=== PATIENT | female | born 1940 | race Caucasian/White ===

== ENCOUNTER → 2016-07-21 | Outpatient (CLI) | payer MEDICARE, BC ==
--- NOTE | 2016-07-21 11:37 | CT ---
EXAMINATION TYPE: CT lumbar spine wo con DATE OF EXAM: 07/21/2016 11:25 AM COMPARISON: NONE HISTORY: back pain, hx of cyst CT DLP: 1326.6 mGycm CONTRAST: None TECHNIQUE: CT of the lumbar spine is performed on a spiral scan at 3 mm thick sections. Reconstructed images are performed in the coronal and sagittal planes. FINDINGS: T10-T11: No focal disc herniation or significant disc bulge is evident. No spinal canal stenosis or neural foraminal stenosis is present. T11-T12: No focal disc herniation or significant disc bulge is evident. No spinal canal stenosis or neural foraminal stenosis is present. T12-L1: No focal disc herniation or significant disc bulge is evident. No spinal canal stenosis or neural foraminal stenosis is present. L1-L2: Minimal disc bulging is anterior thecal sac contact. No AP spinal canal stenosis is present. N eural foramen are patent. L2-L3: Minimal disc bulging is anterior thecal sac compression. No AP spinal canal stenosis or neural foraminal stenosis is present. Some facet hypertrophy is present L3-L4: Minimal disc bulging is anterior thecal sac contact. Mild facet hypertrophy is present. No spi nal canal stenosis or neural foraminal stenosis is present. L4-L5: Very minimal grade 1 spondylolisthesis may be present. Disc uncovering is anterior thecal sac flattening. No AP spinal canal stenosis present. Facet degenerative changes are present. L5-S1: Degenerative disc changes are present. There is a disc spacer placed. Pedicle screws have beam hardening artifact causing some limitation on this exam. Vertebral alignment appears normal. IMPRESSION: Mild degenerative changes greatest at L5-S1. 2. Postsurgical changes L5-S1
== END | disposition home or self-care (01) ==
LOC: RADCTMAIN 11:05
PROVIDERS: ATTEND Neurological Surgery
DX: M47.817 Spondylosis without myelopathy or radiculopathy, lumbosacral region (principal); Z98.1 Arthrodesis status
CPT/HCPCS: 72131

== ENCOUNTER → 2016-10-12 | Outpatient (CLI) | payer MEDICARE, BC ==
--- NOTE | 2016-10-12 12:48 | MR ---
EXAMINATION TYPE: MR cervical spine wo con DATE OF EXAM: 10/12/2016 11:16 AM COMPARISON: NONE HISTORY: pseudarthrosis after fusion or arthrodesis, abbott, numbness in fingers TECHNIQUE: Multiplanar, multisequence images of the cervical spine were acquired. There is motion on the exam C2-C3: No evidence for degenerative disc disease. No disc bulge/herniation or protrusion. No Canal stenosis. Foramina are patent bilaterally. C3-C4: Uncovertebral joint hypertrophy and facet arthropathy results in foraminal encroachment left g reater than right, posterior extension of endplate disc complex causes anterior mass effect on the th ecal sac, no significant central canal stenosis C4-C5: Bilateral foraminal encroachment is noted left greater than right. Posterior extension of endp late disc complex causes mild anterior mass effect on the thecal sac. Only mild central stenosis. C5-C6: Posterior extension of endplate disc complex results in anterior mass effect on the thecal sac , there is mild to moderate central canal stenosis. Foraminal encroachment is suspected bilaterally l eft greater than right. C6-C7: Foraminal encroachment is present bilaterally. No sizable disc herniation. Broad-based posteri or disc bulge causes minimal anterior mass effect on the thecal sac C7-T1: Broad-based posterior disc bulge causes mild anterior mass effect on the thecal sac. No signif icant central stenosis or foraminal encroachment Cervical segments are intact. Cervical spinal cord is of normal signal. Craniovertebral junction rel ationships are within normal limits. Cervical vertebral bodies show preserved height. There is multi level spondylosis with loss of disc height and signal at the intervertebral levels, endplate discogen ic marrow signal change. Alignment is near anatomic. IMPRESSION: Multilevel degenerative disc disease and foraminal encroachment.
== END | disposition home or self-care (01) ==
LOC: RADMRIMAIN 10:22
PROVIDERS: ATTEND Neurological Surgery
DX: M50.30 Other cervical disc degeneration, unspecified cervical region (principal)
CPT/HCPCS: 72141

== ENCOUNTER → 2017-06-27 | Outpatient (CLI) | payer MEDICARE, BC ==
--- NOTE | 2017-06-27 11:41 | CT ---
EXAMINATION TYPE: CT lumbar spine wo con DATE OF EXAM: 06/27/2017 11:09 AM COMPARISON: 07/21/2016 HISTORY: Low back pain radiates down left leg to foot CT DLP: 1561.6 mGycm Automated exposure control for dose reduction was used. TECHNIQUE: Unenhanced CT of the lumbar spine was performed. Bone and soft tissue window settings are submitted as well as coronal and sagittal reconstructions. FINDINGS: There is minimal (grade 1) anterolisthesis of L4 on L5, unchanged from the prior exam without pars in terarticularis defects. This was likely on a degenerative basis. The remainder of the lumbar vertebra l bodies maintain normal alignment. Vertebral body heights are maintained. Multilevel mild to moderat e degenerative changes of the thoracolumbar spine as visualized are seen. Postsurgical changes of ped icular screws and fixation rods are seen at L5-S1 with an intervertebral disc cage present. Left-sided 2 mm upper pole renal calculus and arterial vascular linear calcifications are noted. No h ydronephrosis of either kidney. Severe atherosclerosis of the abdominal aorta and its branches is see n. L1-L2: Mild disc desiccation and slight loss of disc space height. No disc herniation protrusion or central stenosis. No facet joint arthropathy. No evidence for foraminal encroachment. L2-L3: There is a small broad-based disc bulge, facet arthropathy and ligamentum flavum buckling with out spinal canal stenosis or neural foraminal narrowing. L3-L4: There is a large broad-based disc bulge seen and examination with facet arthropathy and ligame ntum flavum buckling mildly narrow the neural foramen. No spinal canal stenosis. This is mildly progr essed in the prior exam. L4-L5: Again there is a broad-based disc bulge and disc uncovering with grade 1 anterolisthesis of L4 and L5. No spinal canal stenosis. Bilateral mild to moderate neural foraminal narrowing are present as a result of the broad-based disc bulge and facet arthropathy. This is progressed from the prior. L5-S1: Evaluation of the neural foramina are slightly limited secondary to spray artifact from the senia mbar fusion rods and pedicular screws however there appears to be mild left neural foraminal narrowin g and right neural foramen as well as spinal canal appear patent. Disc spacer is again seen. IMPRESSION: 1. Mildly progressed mild to moderate degenerative disc disease throughout the lumbar spine with new mild bilateral neural foraminal narrowing at L3-L4, bilateral mild to moderate neural foraminal narro wing at L4-L5, and while left neural foraminal narrowing at L5-S1. No spinal canal stenosis throughou t the lumbar spine. 2. Postsurgical changes of L5-S1 with persistent mild grade 1 anterolisthesis of L4 on L5, unchanged from the prior. 3. Nonobstructing left punctate renal calculus.
== END | disposition home or self-care (01) ==
LOC: RADCTMAIN 10:47
PROVIDERS: ATTEND Neurological Surgery
DX: M99.73 Connective tissue and disc stenosis of intervertebral foramina of lumbar region (principal); M43.16 Spondylolisthesis, lumbar region; M51.36 Other intervertebral disc degeneration, lumbar region; Z98.890 Other specified postprocedural states
CPT/HCPCS: 72131

== ENCOUNTER 2024-12-09 05:48 | Day surgery (SDC) | payer MEDICARE, BC ==
[~2024-12-09 05:48] MED LIST: ALPRAZolam 0.25 MG TAB PO PRN; ALPRAZolam 0.5 MG TAB PO PRN; HEPARIN SODIUM,PORCINE (1 ML) 2,500 UNIT in SODIUM CHLORIDE 0.9% 250 ML IRRIGATION PRN; NITROGLYCERIN SL TABS 0.4 MG TAB SUBLINGUAL PRN
[2024-12-09] MEDS: IV FLUID CONTINUATION 1,000 ML IV ONE ×2 (06:30→07:27)
[2024-12-09 06:40] LABS: Glucose,Whole Blood 137 mg/dL (70-110)
[2024-12-09] MEDS: SODIUM CHLORIDE 0.9% 1,000 ML in EMPTY BAG 1 BAG IV SCH (06:45)
[2024-12-09 06:58] LABS: Basophils # (A) 0.08 10*3/uL (0.00-0.10); Basophils % (A) 0.6 %; Eosinophils # (A) 0.15 10*3/uL (0.04-0.35); Eosinophils % (A) 1.2 %; HCT 25.2 % (37.2-46.3); HGB 8.1 g/dL (12.0-15.0); Lymphocytes # (A) 1.32 10*3/uL (0.90-5.00); Lymphocytes % (A) 10.3 %; MCH 27.6 pg (27.0-32.0); MCHC 32.1 g/dL (32.0-37.0); MCV 85.7 fL (80.0-97.0); Mean Platelet Volume 9.4 fL (9.5-12.2); Monocytes % (A) 7.8 %; Neutrophils # (A) 10.13 10*3/uL (1.80-7.70); Neutrophils % (A) 78.9 %; Platelet Count 497 10*3/uL (140-440); RBC 2.94 10*6/uL (4.10-5.20); RDW 13.7 % (11.5-14.5); WBC 12.83 10*3/uL (4.50-10.00)
[2024-12-09] MEDS ORDERED: HEPARIN SODIUM,PORCINE 10,000 UNIT in SODIUM CHLORIDE 0.9% 1,000 ML IRRIGATION PRN (07:00)
[2024-12-09] MEDS ORDERED: ATORVASTATIN 80 MG TAB PO ONE (07:00)
[2024-12-09 07:05] LABS: African American GFR (CKD) 88 (>60 ml/min/1.73 sqM); Anion Gap 6 mmol/L; Blood Urea Nitrogen 9 mg/dL (7-17); Calcium 8.6 mg/dL (8.4-10.2); Carbon Dioxide 28 mmol/L (22-30); Chloride 94 mmol/L (98-107); Glucose 119 mg/dL (74-99); Non-African American GFR(CKD) 76 (>60 ml/min/1.73 sqM); Potassium 3.6 mmol/L (3.5-5.1); Sodium 128 mmol/L (137-145)
[2024-12-09] MEDS: HEPARIN SODIUM,PORCINE (1 ML) 2,500 UNIT in SODIUM CHLORIDE 0.9% 250 ML IRRIGATION ONE (07:27)
[2024-12-09] MEDS: HEPARIN SODIUM (1,000 UNIT/ML) 1,000 UNIT in SODIUM CHLORIDE 0.9% 1,000 ML IRRIGATION ONE (07:27)
[2024-12-09] MEDS: LIDOCAINE 2% (PF) 20 MG/ML 5 ML VIAL SQ ONE (07:46)
[2024-12-09] MEDS: fentaNYL (PF) 50 MCG/1 ML VIAL IVP ONE ×2 (07:46→08:04)
[2024-12-09 08:02] VITALS: TEMP 98.2
[2024-12-09] MEDS: MIDAZOLAM 2 MG/2 ML VIAL IVP ONE (08:04)
[2024-12-09 08:10] VITALS: PULSE 70
[2024-12-09] MEDS: HEPARIN SODIUM 1,000 UN/ML (10ML VL) IVP ONE ×2 (08:21→08:29)
[2024-12-09 08:26] LABS: O2 Sat Blood Gas 51.5 %
[2024-12-09 08:28] LABS: O2 Sat Blood Gas 97.9 %
[2024-12-09 08:31] LABS: O2 Sat Blood Gas 55.6 %
[2024-12-09] MEDS: IOPAMIDOL-370 200ML BTL INTRATHECA ONE (08:49)
[2024-12-09] MEDS: ASPIRIN 325 MG TAB PO ONE (09:44)
--- NOTE | 2024-12-09 09:59 | P.CARDCATH ---
Description of Procedure: PROCEDURES PERFORMED: Left heart catheterization, bilateral coronary angiography, ultrasound guided arterial access, right heart catheterization, RFR LAD INDICATION: Abnormal stress test, pulmonary hypertension CONSENT:I have discussed the risks, benefits and alternative therapies for the above-mentioned procedure and for both sedation/analgesia as well as necessary blood product administration, if indicated, as they pertain to this patient. The patient has indicated understanding and acceptance of the risks and procedures discussed. PROCEDURE: After the risks, benefits and alternatives of the above mentioned procedure explained in detail with the patient, informed consent was obtained. Patient was taken to the catheterization lab and prepped and draped in usual fashion. Ultrasound guidance was used to assess for arterial access. 1% lidocaine was used to anesthetize the right radial artery. The right radial artery appeared small and ultrasound and 2 attempts were made with cannulation of the radial artery however unable to easily pass a wire. Therefore femoral approach was taken. 1% lidocaine was used in this the right femoral area. A 6- Tanzanian sheath was placed in the right femoral artery using modified Seldinger technique and ultrasound guidance with a micropuncture. A 6 [place] sheath was placed in the right brachial vein using ultrasound guidance. A 5 [place] Hooven- Inder catheter was inserted into the right atrium, right ventricle, pulmonary artery and pulmonary capillary wedge position with pressure measurements and oxygen saturations obtained. Thermodilution was performed. Left coronary angiography was performed with a 6-T[place] JL 4.0 catheter and right coronary angiography was performed with a 5-Tanz[place] AR2 catheter in various views. A 5- [place] FR5 catheter was inserted into the left ventricle and pressure measurements were obtained. There was borderline lesion in the LAD and therefore heparin was given and a 6 [place] CLS 4.0 catheter was used to engage the left main. A 0.014 pressure wire was inserted into the left main and normalized. It was then inserted into the mid LAD and RFR was performed and was borderline, abnormal at 0.89. Given patient's problems with anemia as well as significant hypertension, medical therapy was recommended first. A right femoral angiogram performed showed adequate anatomy for closure. A 6 [place] Angio-Seal was placed in the right femoral artery with hemostasis achieved. There was significant major difference between central aortic pressure and the 220-240/80 range and her automatic blood pressure cover reading of 70s over 40s. The patient tolerated the procedure well. Patient was transported back to the post catheterization holding area in stable condition. Conscious Sedation: Patient was monitored under the direct supervision of myself for conscious sedation using Versed and fentanyl for a total duration of 55 minutes HEMODYNAMICS: Aorta: 210/65 LV: 199/15, LVEDP 20 PCWP: 11 PA: 37/14 RV: 40/2 RA: 8 Right atrium oxygen saturation: 56% Pulmonary artery oxygen saturation: 52% Right femoral artery oxygen saturation: 90% Cardiac output by Danni: 5.0 L/min Cardiac index by Danni: 2.9 L/min/m Cardiac output by thermal dilution: 4.7 L/min Cardiac index by thermodilution: 2.7 L/min/m SELECTIVE CORONARY ARTERIOGRAPHY: LEFT MAIN: The left main is a large caliber vessel which bifurcates into the LAD and circumflex. There is no significant stenosis. LEFT ANTERIOR DESCENDING CORONARY ARTERY: LAD is a large caliber vessel which wraps around to the apex. There is heavy calcification however 20 to 30% proximal LAD stenosis. There is a mid LAD 60 to 70% stenosis at the level of a small caliber diagonal 2 branch. Otherwise there are mild luminal irregularities. LEFT CIRCUMFLEX CORONARY ARTERY: Left circumflex is a moderate caliber vessel with 20 to 30% stenosis. RIGHT CORONARY ARTERY: The right coronary artery is a large caliber vessel which gives off a PDA and PLV branch and is the dominant vessel. There are diffuse mild luminal irregularities with 20% proximal and mid RCA stenosis and a mid to distal RCA 50 to 60% stenosis. FINAL IMPRESSION: 1. CAD as described above including mid LAD 60 to 70% stenosis, mid to distal RCA 50 to 60% stenosis 2. High normal left sided filling pressures, normal right sided pressures 3. Major Discrepancy of systemic blood pressure reading and blood pressure cuff reading 4. Abnormal RFR of LAD PLAN: 1. Aggressive risk factor modification per most recent ACC/AHA guidelines. 2. Patient does have borderline abnormal RFR of LAD however significant anemia as well as significant hypertension. More aggressive medical therapy and if continues to have angina type symptoms may consider intervention.
[2024-12-09 13:08] VITALS: BP 86/46; RESP 16
== END 2024-12-09 13:30 | disposition home or self-care (01) ==
LOC: CATHCVL 05:48
PROVIDERS: ATTEND Internal Medicine
DX: I25.10 Atherosclerotic heart disease of native coronary artery without angina pectoris (principal); I25.84 Coronary atherosclerosis due to calcified coronary lesion; I10 Essential (primary) hypertension; E11.9 Type 2 diabetes mellitus without complications; E78.5 Hyperlipidemia, unspecified; J44.89 Other specified chronic obstructive pulmonary disease; I27.20 Pulmonary hypertension, unspecified; D50.9 Iron deficiency anemia, unspecified; R00.1 Bradycardia, unspecified; I95.9 Hypotension, unspecified; F17.210 Nicotine dependence, cigarettes, uncomplicated; Z79.84 Long term (current) use of oral hypoglycemic drugs; Z79.82 Long term (current) use of aspirin; Z79.899 Other long term (current) drug therapy; Z86.73 Personal history of transient ischemic attack (TIA), and cerebral infarction without residual deficits; Z88.5 Allergy status to narcotic agent; Z88.0 Allergy status to penicillin
CPT/HCPCS: 93460; 93799; 80048; 85018; 82810; 85025; C1769 ×4; C1760; C1887; C1894 ×2; J2250; J1644 ×2; J2003; J3010; Q9967

== ENCOUNTER 2024-12-15 12:38 | Inpatient (IN) | payer MEDICARE, BC ==
[2024-12-15 14:45] LABS: Glucose,Whole Blood 165 mg/dL (70-110)
[2024-12-15] MEDS ORDERED: NALOXONE 0.4 MG/ML 1 ML VIAL IV PRN (14:46)
[2024-12-15] MEDS ORDERED: Potassium Replacement Protocol 1 EACH MISC MISCELLANE PRN (14:46)
[2024-12-15] MEDS ORDERED: Magnesium Replacement Protocol 1 EACH MISC MISCELLANE PRN (14:46)
[2024-12-15 18:07] LABS: Basophils # (A) 0.03 10*3/uL (0.00-0.10); Basophils % (A) 0.2 %; Eosinophils # (A) 0.00 10*3/uL (0.04-0.35); Eosinophils % (A) 0.0 %; HCT 27.2 % (37.2-46.3); HGB 8.9 g/dL (12.0-15.0); Lymphocytes # (A) 0.85 10*3/uL (0.90-5.00); Lymphocytes % (A) 4.4 %; MCH 28.3 pg (27.0-32.0); MCHC 32.7 g/dL (32.0-37.0); MCV 86.6 fL (80.0-97.0); Monocytes # (A) 1.12 10*3/uL (0.20-1.00); Monocytes % (A) 5.8 %; Neutrophils # (A) 17.20 10*3/uL (1.80-7.70); Neutrophils % (A) 88.6 %; Platelet Count 393 10*3/uL (140-440); RBC 3.14 10*6/uL (4.10-5.20); RDW 14.2 % (11.5-14.5); WBC 19.40 10*3/uL (4.50-10.00)
[2024-12-15 18:32] LABS: Bacteria,Urine Rare /hpf; Bilirubin,Urine Negative (Negative); Blood,Urine Large (Negative); Color,Urine Yellow; Glucose,Urine (UA) 1+ (Negative); Ketones,Urine Negative (Negative); Leukocyte Esterase,Urine Trace (Negative); Mucus,Urine Occasional /hpf; Nitrite,Urine Negative (Negative); PH, Urine 5.5 (5.0-8.0); Protein,Urine 2+ (Negative); RBC,Urine >182 /hpf (0-5); Specific Gravity,Urine 1.019 (1.001-1.035); Urobilinogen,Urine <2.0 mg/dL (<2.0); WBC,Urine 42 /hpf (0-5)
[2024-12-15 18:48] LABS: African American GFR (CKD) 64 (>60 ml/min/1.73 sqM); Anion Gap 7 mmol/L; Blood Urea Nitrogen 17 mg/dL (7-17); Calcium 8.6 mg/dL (8.4-10.2); Carbon Dioxide 19 mmol/L (22-30); Chloride 101 mmol/L (98-107); Glucose 175 mg/dL (74-99); Magnesium 2.0 mg/dL (1.6-2.3); Non-African American GFR(CKD) 55 (>60 ml/min/1.73 sqM); Potassium 4.5 mmol/L (3.5-5.1); Sodium 127 mmol/L (137-145)
[2024-12-15] MEDS: SODIUM CHLORIDE 0.9% 1,000 ML IV SCH (19:57)
[2024-12-15] MEDS: HYDROmorphone 0.5 MG/0.5 ML SYRINGE IVP PRN (19:58)
[2024-12-15] MEDS: BUDESONIDE 0.5 MG/2 ML NEBU INHALATION SCH (20:29)
[2024-12-15] MEDS: INSULIN LISPRO (HumaLOG) 100 UNIT/ML 10 mL VL SQ SCH (20:31)
[2024-12-15] MEDS: IPRATROPIUM BROMIDE 0.06% NASAL SPRAY (15 ML) NASAL SCH (20:31)
--- NOTE | 2024-12-16 02:49 | XR ---
EXAM: XR Chest, 1 View CLINICAL HISTORY: ITS.REASON XR Reason: acute hypoxemic respiratory failure TECHNIQUE: Frontal view of the chest. COMPARISON: No relevant prior studies available. IMPRESSION: Cardiomegaly. Minimal vascular congestion. Left basilar opacity.
[2024-12-16 03:03] LABS: Basophils # (A) 0.05 10*3/uL (0.00-0.10); Basophils % (A) 0.3 %; Eosinophils # (A) 0.17 10*3/uL (0.04-0.35); Eosinophils % (A) 1.0 %; HCT 27.4 % (37.2-46.3); HGB 8.8 g/dL (12.0-15.0); Lymphocytes # (A) 1.23 10*3/uL (0.90-5.00); Lymphocytes % (A) 6.9 %; MCH 28.0 pg (27.0-32.0); MCHC 32.1 g/dL (32.0-37.0); MCV 87.3 fL (80.0-97.0); Monocytes # (A) 0.99 10*3/uL (0.20-1.00); Monocytes % (A) 5.5 %; Neutrophils # (A) 15.30 10*3/uL (1.80-7.70); Neutrophils % (A) 85.5 %; Platelet Count 438 10*3/uL (140-440); RBC 3.14 10*6/uL (4.10-5.20); RDW 14.4 % (11.5-14.5); WBC 17.89 10*3/uL (4.50-10.00)
[2024-12-16 03:27] LABS: African American GFR (CKD) 73 (>60 ml/min/1.73 sqM); Anion Gap 5 mmol/L; Blood Urea Nitrogen 17 mg/dL (7-17); Calcium 8.6 mg/dL (8.4-10.2); Carbon Dioxide 19 mmol/L (22-30); Chloride 103 mmol/L (98-107); Glucose 134 mg/dL (74-99); Non-African American GFR(CKD) 64 (>60 ml/min/1.73 sqM); Potassium 4.1 mmol/L (3.5-5.1); Sodium 127 mmol/L (137-145)
--- NOTE | 2024-12-16 04:13 | P.CNPUL ---
History of Present Illness Consult date: 12/16/24 Requesting physician: Refugio Spears Reason for consult: other Chief complaint: Transfer from outside facility History of present illness: Patient is a 84-year-old female transferred from [facility] yesterday. Documented past medical history including hypertension, hyperlipidemia, diabetes mellitus, CVA/TIA, seizure disorder, CKD, chronic anemia. Reportedly, concerns of peripheral hypotension despite central hypertension. Imaging done at the outside facility including a chest CT angiogram concerning for bilateral subclavian stenosis and possible additional subclavian steal syndrome. Poor opacification thought to be related to the severe stenosis. A femoral arterial line catheter was placed identifying severe hypertension, reportedly as high as 270/100 mmHg. Previously, placed on IV nitroglycerin at outside facility, and now on oral antihypertensives.. Of note, patient previously underwent left and right-sided heart catheterization on 12/09/2024 identifying coronary artery disease with mid LAD 60 to 70% stenosis, mid distal RCA 50 to 60% stenosis. High left-sided filling pressures. Additionally, major discrepancy noted in systemic blood pressure reading and blood pressure cuff which was identified at 70/40's mmHg. Her central aortic pressure was in the order of 220-240 over 80 mmHg. Labs including a CBC with a WBC count of 19.4, hemoglobin 8.9, platelets 393. BMP with sodium 127, potassium 4.5, chloride 101, serum bicarb 19, BUN 17, creatinine 0.96, glucose 175. Urinalysis positive for pyuria and bacteriuria. Empirically placed on Rocephin previously. Normal saline infusing at 75 mL/h. Patient being seen in the intensive care unit. She does not have any specific complaints. She is resting comfortably on room air. SpO2 reading 93% on bedside monitor. Heart rhythm appears normal sinus with frequent PACs. Blood pressure is now normotensive, currently reading 115/72 mmHg via a right femoral arterial line. Nitroglycerin has previously been stopped. She is on a combination of oral antihypertensives including Norvasc, losartan, Aldactone. She does report occasional bilateral arm and hand numbness and tingling with activity. Admits to frontal headache, almost 1 week. Currently resolved. Also, reports blurred vision over the last couple months. Denies hearing loss, tinnitus, dizziness, syncope. Denies any chest pain, heart palpitations, lower extremity edema, shortness of breath. She has remained hemodynamically stable, awaiting c ardiovascular recommendations. Review of Systems Constitutional: Denies chills, Denies fever, Denies poor appetite, Denies weakness, Denies weight gain, Denies weight loss Ears, nose, mouth and throat: Reports headache, Denies nasal congestion, Denies nasal discharge, Denies post-nasal drip, Denies sinus pain, Denies sinus pressure, Denies sore throat Cardiovascular: Denies chest pain, Denies irregular heart beat, Denies leg edema, Denies lightheadedness, Denies orthopnea, Denies palpitations, Denies paroxysmal nocturnal dyspnea, Denies syncope Respiratory: Reports cough, Denies congestion, Denies cough with sputum, Denies dyspnea, Denies hemoptysis, Denies pain on inspiration, Denies wheezing Gastrointestinal: Denies abdominal pain, Denies constipation, Denies diarrhea, Denies hematochezia, Denies melena, Denies nausea, Denies vomiting Genitourinary: Denies difficulty voiding, Denies dysuria, Denies flank pain, Denies hematuria Musculoskeletal: Denies limitation of motion Integumentary: Denies rash, Denies unusual bruising Neurological: Reports headaches, Reports numbness, Reports paresthesias, Denies ataxia, Denies change in speech, Denies gait dysfunction, Denies head injury, Denies paralysis, Denies seizures, Denies syncope, Denies weakness, Denies visual changes Psychiatric: Denies anxiety, Denies depression Past Medical History Past Medical History: Asthma, COPD, CVA/TIA, Diabetes Mellitus, GERD/Reflux, Hyperlipidemia, Hypertension, Memory Impairment, Osteoarthritis (OA), Seizure Disorder Additional Past Medical History / Comment(s): "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 LAST SEIZURE APPROXIMATELY YRS AGO (2012)., SOB w/exertion, started within the last year, recent stress test, recent fall last week @home & hurt ribs, never went to be checked by her PCP History of Any Multi-Drug Resistant Organisms: None Reported Past Surgical History: Appendectomy, Hysterectomy, Orthopedic Surgery Additional Past Surgical History / Comment(s): BILATERAL SHOULDER SURGERY. Past Anesthesia/Blood Transfusion Reactions: No Reported Reaction Past Psychological History: Anxiety Smoking Status: Former smoker Past Alcohol Use History: None Reported Additional Past Alcohol Use History / Comment(s): quit smoking 2007, <ppd 34 yrs. Past Drug Use History: None Reported - Past Family History Father Family Medical History: Cancer Additional Family Medical History / Comment(s): Kidney ca Sister(s) Family Medical History: Cancer Additional Family Medical History / Comment(s): Sister had lung cancer Medications and Allergies Home Medications Medication Instructions Recorded Confirmed Type Aspirin 81 mg PO DAILY 12/06/24 12/15/24 History Cholecalciferol [Vitamin D3 (25 25 mcg PO DAILY 12/06/24 12/15/24 History Mcg = 1000 Iu)] Citalopram Hydrobromide [CeleXA] 10 mg PO DAILY 12/06/24 12/15/24 History Ferrous Sulfate [Feosol] 325 mg PO DAILY 12/06/24 12/15/24 History Magnesium 500 mg PO DAILY 12/06/24 12/15/24 History Montelukast [Singulair] 10 mg PO DAILY 12/06/24 12/15/24 History Multivitamins, Thera [Multivitamin 1 tab PO DAILY 12/06/24 12/15/24 History (formulary)] Pravastatin Sodium [Pravachol] 20 mg PO DAILY 12/06/24 12/15/24 History Furosemide [Lasix] 40 mg PO DAILY 12/15/24 12/15/24 History diphenhydrAMINE [Benadryl] 25 mg PO HS 12/15/24 12/15/24 History metFORMIN HCL ER [Glucophage XR] 500 mg PO BID 12/15/24 12/15/24 History oxyCODONE-APAP 7.5-325MG [Percocet 0.5 - 1 tab PO QID PRN 12/15/24 12/15/24 History 7.5-325 mg] Allergies Allergy/AdvReac Type Severity Reaction Status Date / Time albuterol Allergy Swelling. Verified 12/15/24 17:47 RASH codeine Allergy Rash/Hives. Verified 12/15/24 17:47 SWELLING methylprednisolone Allergy Swelling. Verified 12/15/24 17:47 [From Medrol] RASH Penicillins Allergy Swelling. Verified 12/15/24 17:47 RASH Physical Exam Vitals: Vital Signs Temp Pulse Resp BP Pulse Ox 12/16/24 00:00 66 17 91 L 12/15/24 23:30 62 16 92 L 12/15/24 23:00 62 13 90 L 12/15/24 22:30 67 15 58/31 92 L 12/15/24 22:00 68 15 58/31 91 L 12/15/24 21:30 70 14 58/31 93 L 12/15/24 21:00 61 17 97 12/15/24 20:30 67 16 98 12/15/24 20:00 98.1 F 71 18 95 12/15/24 19:30 78 15 98 12/15/24 19:00 73 16 97 12/15/24 18:30 81 14 97 12/15/24 18:00 72 11 L 97 12/15/24 17:30 75 24 97 12/15/24 17:00 70 18 97 12/15/24 16:30 72 19 98 12/15/24 16:22 97 12/15/24 16:15 80 16 98 12/15/24 16:00 79 18 97 12/15/24 15:45 75 16 97 12/15/24 15:30 75 18 58/31 96 12/15/24 15:15 72 17 69/34 89 L 12/15/24 15:00 74 16 90 L 12/15/24 14:45 98.1 F 88 20 Intake and Output 12/15/24 12/15/24 12/16/24 14:59 22:59 06:59 Intake Total 763 81 Output Total 305 35 Balance 458 46 Intake: IV 273 81 Sodium Chloride 0.9% 1, 225 75 000 ml @ 75 mls/hr IV . [id number] [facility] Rx#:[id number] pressure bags 48 6 Oral 490 Output: Urine 305 35 Other: Voiding Method Indwelling Catheter Indwelling Catheter Weight 84.4 kg ABP, PAP, CO, CI - Last 8 Hours Arterial Blood Pressure 86/52 Arterial Blood Pressure 93/56 Arterial Blood Pressure 95/55 Arterial Blood Pressure 88/50 Arterial Blood Pressure 91/55 Arterial Blood Pressure 98/61 Arterial Blood Pressure 92/60 Arterial Blood Pressure 98/65 Arterial Blood Pressure 141/97 Arterial Blood Pressure 124/67 Arterial Blood Pressure 159/83 Arterial Blood Pressure 185/96 Arterial Blood Pressure 169/45 Arterial Blood Pressure 178/42 Arterial Blood Pressure 161/38 GENERAL EXAM: Alert, 84-year-old female, on room air, comfortable in no apparent distress. HEAD: Normocephalic and atraumatic EYES: Normal reaction of pupils, equal size. No nystagmus. NOSE: Clear with pink turbinates. THROAT: No erythema or exudates. NECK: No masses, no JVD, no carotid bruits. CHEST: No chest wall deformity. Right subclavian triple-lumen catheter secured LUNGS: Equal air entry with no crackles, wheeze, rhonchi or dullness. On room air. No conversational dyspnea or accessory muscle use.. CVS: S1 and S2 normal with no audible murmur, irregular rhythm. No extra heart sounds ABDOMEN: No hepatosplenomegaly, active bowel sounds, no guarding or rigidity. SPINE: No scoliosis or deformity SKIN: No rashes CENTRAL NERVOUS SYSTEM: Cranial nerves II through XII intact, no unilateral extremity weakness, no ataxia. EXTREMITIES: Diminished bilateral brachial and radial pulses, difficult to find even with Doppler. Extremities are warm. Capillary refill less than 2 seconds throughout. No there is no peripheral edema, clubbing, or cyanosis. Results - Laboratory Findings CBC and BMP: 12/16/24 02:50 12/16/24 02:50 Abnormal lab findings: Abnormal Labs 12/15/24 12/15/24 12/15/24 14:43 18:00 18:00 WBC 19.40 H RBC 3.14 L Hgb 8.9 L Hct 27.2 L Immature Gran # 0.20 H Neutrophils # 17.20 H Lymphocytes # 0.85 L Monocytes # 1.12 H Eosinophils # 0.00 L Sodium 127 L Carbon Dioxide 19 L Glucose 175 H POC Glucose (mg/dL) 165 H Urine Appearance Urine Protein Urine Glucose (UA) Urine Blood Ur Leukocyte Esterase Urine RBC Urine WBC Urine Bacteria Urine Mucus 12/15/24 18:11 WBC RBC Hgb Hct Immature Gran # Neutrophils # Lymphocytes # Monocytes # Eosinophils # Sodium Carbon Dioxide Glucose POC Glucose (mg/dL) Urine Appearance Cloudy H Urine Protein 2+ H Urine Glucose (UA) 1+ H Urine Blood Large H Ur Leukocyte Esterase Trace H Urine RBC >182 H Urine WBC 42 H Urine Bacteria Rare H Urine Mucus Occasional H - Diagnostic Findings Chest x-ray: image reviewed Assessment and Plan Assessment: Transferred from outside facility with concerns of bilateral subclavian artery stenosis Hypertensive urgency, previously on nitroglycerin infusion at outside facility, now started on p.o. antihypertensives. Blood pressure is normotensive in the right femoral arterial line Recent right and left heart catheterization on 12/09/2024 identifying coronary artery disease including mid LAD 60 to 70% stenosis, mid distal RCA 50 to 60% stenosis. High left-sided filling pressures. Additionally, major discrepancy noted in systemic blood pressure reading and blood pressure cuff which was repor shailesh at 70/40's mmHg. Her central aortic pressure was in the order of 220-240 over 80 mmHg per the labor trainer report. Acute leukocytosis Anemia, normocytic and normochromic Hyponatremia, appears euvolemic Nonobstructive coronary artery disease, as reported during heart catheterization History of hyperlipidemia Diabetes mellitus History of CVA/TIA. History of asthma, not in exacerbation Plan: Patient is being monitored in the intensive care unit Currently hemodynamically stable Blood pressure appears normotensive via right femoral arterial line, which was established at outside facility Previously started on p.o. antihypertensives including Norvasc, losartan, and Aldactone Chest x-ray reviewed; cardiomegaly, pulmonary vascular congestion. Radiologist reports possible left basilar opacity. Previously, placed on Rocephin empirically. Awaiting cardiovascular recommendations. Reports of possible angiogram and/or endovascular intervention We will continue to follow patient while in the intensive care unit. I have personally seen and examined the patient, performed the documentation and the assessment and plan as written. Number of minutes spent on the visit:20 Time with Patient: Greater than 30
[2024-12-16 06:20] LABS: Glucose,Whole Blood 187 mg/dL (70-110)
[2024-12-16] MEDS: LOSARTAN 50 MG TAB PO SCH (08:41)
[2024-12-16] MEDS: SPIRONOLACTONE 25 MG TAB PO SCH (08:41)
[2024-12-16] MEDS: amLODIPine 10 MG TAB PO SCH (08:42)
[2024-12-16 10:16] LABS: Glucose,Whole Blood 135 mg/dL (70-110)
[2024-12-16] MEDS: ACETAMINOPHEN TAB 500 MG TAB PO PRN (11:59)
--- NOTE | 2024-12-16 14:48 | P.CONS ---
History of Present Illness - Reason for Consult Consult date: 12/16/24 - Chief Complaint bilateral subclavian stenosis - History of Present Illness Dr. Sheldon's addendum Seen and examined with the resident at bedside # Bilateral subclavian artery stenosis leading to low blood pressure readings # Central hypertensive urgency # Mild obstructive CAD Plan is to get the intervention done for the subclavian artery stenosis with Dr. Rivera Thereafter reevaluate blood pressure regimen. We introduced 50 mg of hydralazine to be used every 6 hours as needed for SBP >180 mmHg Patient is a 84-year-old female with history of hypertension, hyperlipidemia, diabetes mellitus, CKD, chronic anemia, CVA/TIA and seizure disorder is a transfer from [facility] yesterday on 12/15/2024. As per the documentation, patient was sent to the [facility] emergency with concerns for hypotension when she was at pulmonology Dr. Cox's office. At [facility], patient had a chest CT angiogram which was concerning for bilateral subclavian stenosis and possible additional subclavian steal syndrome. Patient had a placement of femoral arterial line catheter at the outside facility with a blood pressure of as high as 270/100 mmHg. Patient was treated with IV nitroglycerin and currently is on antihypertensive medication. She is Dr. Rivera's patient. Patient underwent left and right heart catheterization due to abnormal stress test and pulmonary hypertension on 11/12 identifying coronary artery disease including mid LAD 60 to 70% stenosis and mid to distal RCA 50 to 60% stenosis. Elevated left-sided filling pressures. Abnormal RFR of LAD. Patient is currently in the ICU. Patient denies any chest pain, shortness of breath, lightheadedness lower extremity edema. Patient is currently on oral antihypertensive medications including amlodipine, losartan and Aldactone. Pertinent labs: WBC 17.89, hemoglobin 8.8, sodium 127, BUN 17, creatinine 0.86 Pertinent images: Chest x-ray shows minimal vascular congestion with trace left pleural effusion. EKG shows sinus rhythm with occasional supraventricular premature complexes with ventricular rate of 85 bpm, IL interval 174 ms, QTc [address]-T wave changes noted. Review of systems: Pertinent positives and negatives as discussed in HPI, a complete review of systems was performed and all other systems are negative. Social history: Tobacco: Former smoker Physical examination: Vital signs reviewed General: non toxic, no distress, appears at stated age, morbidly obese Neck: No cervical lymphadenopathy, trachea midline, supple, no JVP Mouth: no lip lesion, mucus membranes moist Cardiovascular: S1S2 reg, no murmur, positive dorsalis pedis pulse bilateral, no edema Lungs: Diffuse inspiratory and expiratory wheezes noted. No rales or crackles noted. No use of accessory respiratory muscle. Abdominal: soft, nontender to palpation, no guarding Psych: Alert, oriented, appropriate affect Assessment: #Bilateral subclavian artery stenosis as per CT angiography from outside facility #Hypertensive urgency #Coronary artery disease based on recent right and left heart catheterization on 12/09/2024 #Leukocytosis, reactive versus infectious #Normocytic anemia #Hyperlipidemia #Euvolemic hyponatremia Plan: Continue with amlodipine 10 mg once daily, losartan 100 mg p.o. once daily 50 mg p.o. once daily Add hydralazine 50 mg every 6 hours as needed for SBP more than 180 Bilateral subclavian angiogram with possible PCI today with Dr. Rivera Patient is currently hemodynamically stable and in ICU Continue to monitor vital signs Abx per primary team Past Medical History Past Medical History: Asthma, COPD, CVA/TIA, Diabetes Mellitus, GERD/Reflux, Hyperlipidemia, Hypertension, Memory Impairment, Osteoarthritis (OA), Seizure Disorder Additional Past Medical History / Comment(s): "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 LAST SEIZURE APPROXIMATELY YRS AGO (2012)., SOB w/exertion, started within the last year, recent stress test, recent fall last week @home & hurt ribs, never went to be checked by her PCP History of Any Multi-Drug Resistant Organisms: None Reported Past Surgical History: Appendectomy, Hysterectomy, Orthopedic Surgery Additional Past Surgical History / Comment(s): BILATERAL SHOULDER SURGERY. Past Anesthesia/Blood Transfusion Reactions: No Reported Reaction Past Psychological History: Anxiety Smoking Status: Former smoker Past Alcohol Use History: None Reported Additional Past Alcohol Use History / Comment(s): quit smoking 2007, <ppd 34 yrs. Past Drug Use History: None Reported - Past Family History Father Family Medical History: Cancer Additional Family Medical History / Comment(s): Kidney ca Sister(s) Family Medical History: Cancer Additional Family Medical History / Comment(s): Sister had lung cancer Medications and Allergies Home Medications Medication Instructions Recorded Confirmed Type Aspirin 81 mg PO DAILY 12/06/24 12/15/24 History Cholecalciferol [Vitamin D3 (25 25 mcg PO DAILY 12/06/24 12/15/24 History Mcg = 1000 Iu)] Citalopram Hydrobromide [CeleXA] 10 mg PO DAILY 12/06/24 12/15/24 History Ferrous Sulfate [Feosol] 325 mg PO DAILY 12/06/24 12/15/24 History Magnesium 500 mg PO DAILY 12/06/24 12/15/24 History Montelukast [Singulair] 10 mg PO DAILY 12/06/24 12/15/24 History Multivitamins, Thera [Multivitamin 1 tab PO DAILY 12/06/24 12/15/24 History (formulary)] Pravastatin Sodium [Pravachol] 20 mg PO DAILY 12/06/24 12/15/24 History Furosemide [Lasix] 40 mg PO DAILY 12/15/24 12/15/24 History diphenhydrAMINE [Benadryl] 25 mg PO HS 12/15/24 12/15/24 History metFORMIN HCL ER [Glucophage XR] 500 mg PO BID 12/15/24 12/15/24 History oxyCODONE-APAP 7.5-325MG [Percocet 0.5 - 1 tab PO QID PRN 12/15/24 12/15/24 History 7.5-325 mg] Allergies Allergy/AdvReac Type Severity Reaction Status Date / Time albuterol Allergy Swelling. Verified 12/15/24 17:47 RASH codeine Allergy Rash/Hives. Verified 12/15/24 17:47 SWELLING methylprednisolone Allergy Swelling. Verified 12/15/24 17:47 [From Medrol] RASH Penicillins Allergy Swelling. Verified 12/15/24 17:47 RASH Physical Exam Vitals: Vital Signs Temp Pulse Resp BP Pulse Ox 12/16/24 14:00 70 18 93 L 12/16/24 13:30 67 16 92 L 12/16/24 13:00 70 16 92 L 12/16/24 12:30 68 18 93 L 12/16/24 12:00 98.1 F 71 19 92 L 12/16/24 11:30 68 17 92 L 12/16/24 11:00 26 H 94 L 12/16/24 10:33 70 18 12/16/24 10:30 71 23 95 12/16/24 10:25 73 18 98 12/16/24 10:00 67 18 97 12/16/24 09:30 76 16 96 12/16/24 09:00 78 16 97 12/16/24 08:30 81 18 98 12/16/24 08:00 97.4 F L 60 15 95 12/16/24 07:30 63 17 94 L 12/16/24 07:00 60 15 92 L 12/16/24 06:30 68 13 92 L 12/16/24 06:00 62 14 95 12/16/24 05:30 61 12 92 L 12/16/24 05:00 67 13 93 L 12/16/24 04:30 68 12 94 L 12/16/24 04:00 74 16 97 12/16/24 03:30 67 15 97 12/16/24 03:00 69 15 92 L 12/16/24 02:30 68 13 95 12/16/24 02:00 77 14 92 L 12/16/24 01:30 78 15 90 L 12/16/24 01:00 96 21 92 L 12/16/24 00:30 72 17 91 L 12/16/24 00:17 62 18 93 L 12/16/24 00:00 66 17 91 L 12/15/24 23:30 62 16 92 L 12/15/24 23:00 62 13 90 L 12/15/24 22:30 67 15 58/31 92 L 12/15/24 22:00 68 15 58/31 91 L 12/15/24 21:30 70 14 58/31 93 L 12/15/24 21:00 61 17 97 12/15/24 20:30 67 16 98 12/15/24 20:00 98.1 F 71 18 95 12/15/24 19:30 78 15 98 12/15/24 19:00 73 16 97 12/15/24 18:30 81 14 97 12/15/24 18:00 72 11 L 97 12/15/24 17:30 75 24 97 12/15/24 17:00 70 18 97 12/15/24 16:30 72 19 98 12/15/24 16:22 97 12/15/24 16:15 80 16 98 12/15/24 16:00 79 18 97 12/15/24 15:45 75 16 97 12/15/24 15:30 75 18 58/31 96 12/15/24 15:15 72 17 69/34 89 L 12/15/24 15:00 74 16 90 L 12/15/24 14:45 98.1 F 88 20 Intake and Output 12/15/24 12/16/24 12/16/24 22:59 06:59 14:59 Intake Total 763 648 648 Output Total 305 340 320 Balance 458 308 328 Intake: IV 273 648 648 Sodium Chloride 0.9% 1, 225 600 600 000 ml @ 75 mls/hr IV . [id number] [facility] Rx#:[id number] pressure bags 48 48 48 Oral 490 Output: Urine 305 340 320 Other: Voiding Method Indwelling Catheter Indwelling Catheter Indwelling Catheter Weight 84.2 kg 84.2 kg ABP, PAP, CO, CI - Last 8 Hours Arterial Blood Pressure 182/42 Arterial Blood Pressure 171/37 Arterial Blood Pressure 182/43 Arterial Blood Pressure 183/40 Arterial Blood Pressure 184/43 Arterial Blood Pressure 199/38 Arterial Blood Pressure 234/50 Arterial Blood Pressure 218/49 Arterial Blood Pressure 202/43 Arterial Blood Pressure 217/49 Arterial Blood Pressure 240/53 Arterial Blood Pressure 232/56 Arterial Blood Pressure 158/33 Arterial Blood Pressure 166/31 Arterial Blood Pressure 147/30 Results CBC & Chem 7: 12/16/24 02:50 12/16/24 02:50 Labs: Abnormal Lab Results - Last 24 Hours (Table) 12/15/24 12/15/24 12/15/24 Range/Units 14:43 18:00 18:00 WBC 19.40 H (4.50-10.00) 10*3/uL RBC 3.14 L (4.10-5.20) 10*6/uL Hgb 8.9 L (12.0-15.0) g/dL Hct 27.2 L (37.2-46.3) % MPV (9.5-12.2) fL Immature Gran # 0.20 H (0.00-0.04) 10*3/uL Neutrophils # 17.20 H (1.80-7.70) 10*3/uL Lymphocytes # 0.85 L (0.90-5.00) 10*3/uL Monocytes # 1.12 H (0.20-1.00) 10*3/uL Eosinophils # 0.00 L (0.04-0.35) 10*3/uL Sodium 127 L (137-145) mmol/L Carbon Dioxide 19 L (22-30) mmol/L Glucose 175 H (74-99) mg/dL POC Glucose (mg/dL) 165 H (70-110) mg/dL Urine Appearance (Clear) Urine Protein (Negative) Urine Glucose (UA) (Negative) Urine Blood (Negative) Ur Leukocyte Esterase (Negative) Urine RBC (0-5) /hpf Urine WBC (0-5) /hpf Urine Bacteria (None) /hpf Urine Mucus (None) /hpf 12/15/24 12/16/24 12/16/24 Range/Units 18:11 02:50 02:50 WBC 17.89 H (4.50-10.00) 10*3/uL RBC 3.14 L (4.10-5.20) 10*6/uL Hgb 8.8 L (12.0-15.0) g/dL Hct 27.4 L (37.2-46.3) % MPV 9.2 L (9.5-12.2) fL Immature Gran # 0.15 H (0.00-0.04) 10*3/uL Neutrophils # 15.30 H (1.80-7.70) 10*3/uL Lymphocytes # (0.90-5.00) 10*3/uL Monocytes # (0.20-1.00) 10*3/uL Eosinophils # (0.04-0.35) 10*3/uL Sodium 127 L (137-145) mmol/L Carbon Dioxide 19 L (22-30) mmol/L Glucose 134 H (74-99) mg/dL POC Glucose (mg/dL) (70-110) mg/dL Urine Appearance Cloudy H (Clear) Urine Protein 2+ H (Negative) Urine Glucose (UA) 1+ H (Negative) Urine Blood Large H (Negative) Ur Leukocyte Esterase Trace H (Negative) Urine RBC >182 H (0-5) /hpf Urine WBC 42 H (0-5) /hpf Urine Bacteria Rare H (None) /hpf Urine Mucus Occasional H (None) /hpf 12/16/24 12/16/24 Range/Units 06:19 10:14 WBC (4.50-10.00) 10*3/uL RBC (4.10-5.20) 10*6/uL Hgb (12.0-15.0) g/dL Hct (37.2-46.3) % MPV (9.5-12.2) fL Immature Gran # (0.00-0.04) 10*3/uL Neutrophils # (1.80-7.70) 10*3/uL Lymphocytes # (0.90-5.00) 10*3/uL Monocytes # (0.20-1.00) 10*3/uL Eosinophils # (0.04-0.35) 10*3/uL Sodium (137-145) mmol/L Carbon Dioxide (22-30) mmol/L Glucose (74-99) mg/dL POC Glucose (mg/dL) 187 H 135 H (70-110) mg/dL Urine Appearance (Clear) Urine Protein (Negative) Urine Glucose (UA) (Negative) Urine Blood (Negative) Ur Leukocyte Esterase (Negative) Urine RBC (0-5) /hpf Urine WBC (0-5) /hpf Urine Bacteria (None) /hpf Urine Mucus (None) /hpf
[2024-12-16 15:13] LABS: Glucose,Whole Blood 135 mg/dL (70-110)
[2024-12-16] MEDS: IV FLUID CONTINUATION 1,000 ML IV ONE (15:35)
[2024-12-16] MEDS: LIDOCAINE 1% INJ 10MG/ML (20 ML MDV) SQ ONE ×2 (15:43→15:45)
[2024-12-16] MEDS: fentaNYL (PF) 50 MCG/ML 2 ML AMP IVP ONE ×2 (15:45→16:51)
[2024-12-16] MEDS: MIDAZOLAM 2 MG/2 ML VIAL IVP ONE ×2 (15:45→16:51)
[2024-12-16] MEDS: HEPARIN SODIUM 1,000 UN/ML (10ML VL) IV ONE ×3 (16:20→18:16)
[2024-12-16] MEDS: CLOPIDOGREL 75 MG TAB PO ONE (16:28)
[2024-12-16] MEDS: HEPARIN SODIUM 1,000 UN/ML (10ML VL) IVP ONE (16:30)
--- NOTE | 2024-12-16 17:18 | PN ---
PROGRESS NOTE DATE OF SERVICE: 12/16/2024 SUBJECTIVE: An 84-year-old white female. Remains in ICU. She had surgery done. Dr. Rubio on consult. Dr. Rivera did some aortic angiogram, stenting performed today. Her blood pressure is high. We will have to use p.r.n. hydralazine for hypertension. OBJECTIVE: VITAL SIGNS: Blood pressures in 180s to 190s systolic, O2 92% to 95% on 2 L, respirations 16 to 18, and pulse 70. CARDIOVASCULAR: S1 and S2. LUNGS: Transmitted breath sounds. HEMATOLOGY: Negative Homans. PSYCH: Fair mood and affect. IMPRESSION: Hypertension acceleration, possibly aortic subclavian steal stenosis, chronic obstructive pulmonary disease oxygen-dependent, and pulmonary hypertension. Prognosis extremely guarded. Wait for Cardiology reports. H and P performed on 12/15/2024. MMUDAYL / EDITHN: [id number] /
[2024-12-16] MEDS: NALOXONE 0.4 MG/ML 1 ML VIAL IVP ONE (17:47)
[2024-12-16] MEDS: hydrALAZINE HCL 20 MG/ML 1 ML VIAL IV ONE (17:47)
[2024-12-16] MEDS: FLUMAZENIL 0.1 MG/ML 5 ML VIAL IVP ONE (17:48)
--- NOTE | 2024-12-16 18:03 | HP ---
HISTORY AND PHYSICAL HISTORY OF PRESENT ILLNESS: In the ICU, 84-year-old white female transferred from [facility] with history of hypertension, dyslipidemia, diabetes, CVA, seizure disorder, chronic kidney disease, pulmonary hypertension, hypertension acceleration, came to the hospital, transferred over here for possible aortic stenosis and subclavian steal syndrome. The patient was treated for pneumonia at the other hospital prior to coming here. Cardiology wanted transfer for subclavian steal syndrome. REVIEW OF SYSTEMS: A 14-point review of systems otherwise negative except for chronic fatigue. LABORATORY DATA: White count 17.9, hemoglobin is 8.8, sodium 127, BUN 17, and creatinine 0.86. EKG, sinus rhythm. ASSESSMENT: Bilateral subclavian steal stenosis per CT angiogram, hypertensive urgency, coronary artery disease, leukocytosis, chronic obstructive pulmonary disease, normocytic anemia, dyslipidemia, pulmonary hypertension, hyponatremia, and euvolemic. Blood pressure control will be needed. We will do p.r.n. hydralazine for hypertension. Angiogram pending. Continue medications per other hospital. Please see further orders. MMODL / IJN: [id number] /
[2024-12-16 18:16] LABS: Glucose,Whole Blood 180 mg/dL (70-110)
--- NOTE | 2024-12-16 18:58 | P.PCN ---
Description of Procedure: PROCEDURES PERFORMED: Ascending aortic root angiography, selective bilateral carotid angiogram, stenting of ostium innominate artery with a 7.0 x 27 mm VISI Pro balloon expandable stent INDICATION: Subclavian steal syndrome with lightheadedness, bilateral subclavian stenosis, prior stroke CONSENT:I have discussed the risks, benefits and alternative therapies for the above-mentioned procedure and for both sedation/analgesia as well as necessary blood product administration, if indicated, as they pertain to this patient. The patient has indicated understanding and acceptance of the risks and procedures discussed. PROCEDURE: After the risks, benefits and alternatives of the above mentioned procedure explained in detail with the patient, informed consent was obtained. Patient was taken to the catheterization lab and prepped and draped in usual fashion. 1% lidocaine was used to anesthetize the left femoral area. A 6-Esteban [facility] sheath was placed in the left femoral artery using modified Seldinger technique. A 5-[place] pigtail catheter was inserted to the ascending aorta and DSA imaging was obtained. The right subclavian/innominate was engaged with a VTK catheter. The left subclavian was engaged with a FR4 catheter. The decision was made to perform intervention of the innominate. Initially able to wire the lesion with a 0.035 stiff glide wire and the stiff glide was placed in the right axillary artery.. Unable to pass a 5.0 mm balloon over the 0.035 wire. A 7 [place] destination sheath was placed over the 0.035 wire. Additionally goal was to use embolic protection device and a 7.0 embolic protection device was loaded and 0.014 wire was advanced across the lesion. Unfortunately unable to advance the embolic protection device. Initially a 3.0 mm noncompliant balloon was placed over the 0.014 wire and able to predilate the lesion. Still could not advance the embolic protection device. Next attempts at advancing balloons over the 0.035 wire as well as the 0.014 wire including a 4.0 mm noncompliant balloon, a 4.0 mm shockwave balloon which were unsuccessful. Able to predilate again with a 3.0 mm noncompliant balloon to high atmospheres as well as the ostium with a 4.0 mm noncompliant balloon. The decision was made to perform wiring in axis from above and therefore a 6 [place] sheath was placed in the right brachial artery using modified Salinger technique and ultrasound guidance. Able to pass a 0.035 stiff glide wire with the help of a glide catheter into the aorta. Patient did have altered mental status and left-sided weakness however given wires in place felt best to place a stent in the hopes that this might improve flow and her symptoms. Predilation was performed with a 4 [place] and 5 [place] balloon. Next a 7.0 x 27 mm VISI Pro balloon expandable stent was placed at the origin of the innominate and appeared to be ample room without impinging the right carotid or vertebral. Final angiograms were performed. Preintervention there was 99% stenosis and slow antegrade flow down the carotid as well as vertebral artery and competitive flow to the right axillary artery. Brachial and femoral sheath were left in place. Code stroke was called and neuroassessment performed and case discussed with neuro interventionalists. The patient continued to have altered mental status and strokelike symptoms and was sent for CT for further assessment. Conscious Sedation: Patient was monitored under the direct supervision of vision of myself for conscious sedation using Versed and fentanyl for a total duration of 153 minutes HEMODYNAMICS: Ao: 210/67 Ascending aorta: There is diffuse calcification. No significant aneurysm or dissection noted Innominate/right subclavian: There is heavy calcification of the ostium and a 99% innominate stenosis. This appears proximal to the takeoff of the right carotid and vertebral artery. There is more distal stenosis of the right subclavian artery with a 50 to 60% stenosis. Left common carotid artery: Appears patent without significant stenosis Left subclavian artery: 100% occluded proximally FINAL IMPRESSION: 1. 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 Status post stenting of ostium innominate artery with a 7.0 x 27 mm VISI Pro balloon expandable stent PLAN: 1. Aggressive risk factor modification per most recent ACC/AHA guidelines. 2. Continue dual antiplatelets with aspirin and Plavix for minimum of 6 months 3. Patient will undergo stroke workup and further neuro interventionalists w orkup.
[2024-12-16] MEDS: IOPAMIDOL-370 100ML BTL INJ ONE (18:59)
--- NOTE | 2024-12-16 19:08 | CT ---
EXAMINATION TYPE: CODE STROKE: CT brain wo contr DATE OF EXAM: 12/16/2024 6:59 PM COMPARISON: None CLINICAL INDICATION: Female, 84 years old with history of CODE STROKE, stroke post heart cath TECHNIQUE: Brain: Axial CT images of the brain were obtained with coronal and sagittal reformats created and rev iewed. Contrast used: None. Oral contrast used: None. CT DLP: 1055.7 mGycm, Automated exposure control for dose reduction was used. FINDINGS: Brain: Extra-axial spaces: No abnormal extra-axial fluid collections. Ventricular system: Within normal limits Cerebral parenchyma: Encephalomalacia of the left parietal region from prior injury. High density mat erial in the brothers matter of the right frontal lobe series 11 image 29 as well as the cortex of the bi lateral cerebellum the left frontal lobe from prior injury. No acute intraparenchymal hemorrhage or mass effect. The remainder of the brothers-white junctions are w ell differentiated. Scattered hypoattenuating areas are seen within the white matter. Cerebellum: High-density material in the brothers matter bilaterally suggestive of prior injuries. Mass effect: No evidence of midline shift. Intracranial vasculature: Atherosclerotic calcifications of the intracranial vessels. Soft tissues: Normal. Calvarium/osseous structures: No depressed skull fracture. Paranasal sinuses and mastoid air cells: Mild scattered paranasal sinus disease. Visualized orbits: Orbital contents are intact. IMPRESSION: 1. No areas of acute brothers-white matter loss of differentiation is identified. 2. 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 Further evaluation with MRI recommended. 3. Remote left frontal lobe injury with encephalomalacia. 4. Nonspecific white matter changes. [facility], , 12/16/2024 7:06 PM
[2024-12-16 19:20] LABS: ABG HCO3 20 mmol/L (21-25); ABG PCO2 41 mmHg (35-45); ABG PH 7.29 (7.35-7.45); ABG PO2 207 mmHg (83-108); ABG TCO2 21 mmol/L (19-24); Allen Test Performed? Yes
[2024-12-16 20:03] LABS: Glucose,Whole Blood 179 mg/dL (70-110)
--- NOTE | 2024-12-16 20:26 | CT ---
EXAMINATION TYPE: CODE STROKE: CTA head neck DATE OF EXAM: 12/16/2024 7:42 PM COMPARISON: . CLINICAL INDICATION: Female, 84 years old with history of CODE STROKE; PHH, STROKE POST CATH TECHNIQUE: Axially acquired helical CT angiogram of the head and neck was obtained with contrast. Axi al images are supplemented with 3D reconstructions and MIP images which were post-processed at an in dependent workstation. NASCET criteria used. Contrast used:65 mL of Isovue 370 with IV Contrast, Oral contrast used: None. CT DLP: 354.9 mGycm, Automated exposure control for dose reduction was used. FINDINGS: CTA HEAD: No evidence of acute intracranial hemorrhage, mass effect, or midline shift. The ventricles, sulci, a nd cisterns are unremarkable. Left parietal region encephalomalacia from prior infarct Vertebral arteries: The vertebral arteries are patent. Vertebral artery dominance: Codominant Basilar artery: The basilar artery is intact. The basilar artery bifurcation is normal. Internal Carotid arteries: The cervical, petrous, cavernous and supraclinoid segments are normal. MIGDALIA: Patent with no evidence of aneurysm. ACOM: Present without evidence of aneurysm. MCA: Patent with no evidence of aneurysm. MARSHMALLOW MACHINE OPERATOR: Patent with no evidence of aneurysm. PCOM: Hypoplastic bilaterally. Dural sinuses: Patent. CTA NECK: Right Carotid System: The common carotid and external carotid arteries are patent. There is up to 50% stenosis at the carot id bifurcation secondary to calcified/noncalcified plaque. The rest of the internal carotid artery is patent. Left Carotid System: The common carotid and external carotid arteries are patent. There is up to 50% stenosis at the carot id bifurcation secondary to calcified/noncalcified plaque. The rest of the internal carotid artery is patent. Vertebral arteries are patent without evidence hemodynamically significant stenosis. There is a three-vessel aortic arch. There is severe atherosclerotic plaque at the aortic arch to the degree of the brachiocephalic artery there is at least percent stenosis. There is noncalcified plaqu e with at least 70% stenosis of the left subclavian artery. Possible occlusion present series 10 imag e 57. Upper thorax: Small moderate bilateral pleural effusions partially visualized. Right low paratracheal lymph node measuring up to 11 mm in short axis. AP window lymph node measuring up to 9 mm in short a xis. Layering debris within the esophagus partially visualized. The pulmonary catheter measures up to 2.3 cm in transverse dimension. IMPRESSION: 1. Calcified and noncalcified plaque at the origin and near the origin of the left subclavian artery with occlusion. Correlate for subclavian steal phenomenon. 2. No evidence of dissection of the cervical internal carotid arteries or vertebral arteries. 3. Calcified plaque at the carotid bifurcations with up to 50% stenosis bilaterally. 4. No evidence of intracranial high-grade stenosis or intracranial aneurysm. 5. Dense calcified plaque at the aortic arch with at least 50% stenosis of the brachiocephalic arter y. 6. Prominent mediastinal lymph nodes with bilateral pleural effusions correlate for congestive heart failure. 7. Pulmonary hypertension. [facility], , 12/16/2024 8:23 PM
[2024-12-16] MEDS: ONDANSETRON 4 MG/2 ML VIAL IVP PRN (21:21)
[2024-12-16] MEDS: ATORVASTATIN 80 MG TAB PO SCH (21:45)
[2024-12-17 06:20] LABS: Basophils # (A) 0.06 10*3/uL (0.00-0.10); Basophils % (A) 0.3 %; Eosinophils # (A) 0.21 10*3/uL (0.04-0.35); Eosinophils % (A) 1.0 %; HCT 23.9 % (37.2-46.3); HGB 7.7 g/dL (12.0-15.0); Lymphocytes # (A) 0.92 10*3/uL (0.90-5.00); Lymphocytes % (A) 4.5 %; MCH 28.4 pg (27.0-32.0); MCHC 32.2 g/dL (32.0-37.0); MCV 88.2 fL (80.0-97.0); Monocytes # (A) 1.09 10*3/uL (0.20-1.00); Monocytes % (A) 5.3 %; Neutrophils # (A) 17.91 10*3/uL (1.80-7.70); Neutrophils % (A) 87.4 %; Platelet Count 411 10*3/uL (140-440); RBC 2.71 10*6/uL (4.10-5.20); RDW 15.1 % (11.5-14.5); WBC 20.50 10*3/uL (4.50-10.00)
[2024-12-17 06:32] LABS: ALT 9 U/L (4-34); AST 21 U/L (14-36); African American GFR (CKD) 62 (>60 ml/min/1.73 sqM); Albumin 2.2 g/dL (3.5-5.0); Alkaline Phosphatase 86 U/L (38-126); Anion Gap 3 mmol/L; Blood Urea Nitrogen 17 mg/dL (7-17); Calcium 8.7 mg/dL (8.4-10.2); Carbon Dioxide 21 mmol/L (22-30); Chloride 108 mmol/L (98-107); Glucose 127 mg/dL (74-99); Non-African American GFR(CKD) 53 (>60 ml/min/1.73 sqM); Potassium 4.3 mmol/L (3.5-5.1); Sodium 132 mmol/L (137-145); Total Protein 4.5 g/dL (6.3-8.2)
[2024-12-17 07:04] LABS: Glucose,Whole Blood 140 mg/dL (70-110)
[2024-12-17] MEDS: CLOPIDOGREL 75 MG TAB PO SCH (10:30)
[2024-12-17] MEDS: ASPIRIN 325 MG TAB PO SCH (10:31)
--- NOTE | 2024-12-17 10:38 | XR ---
EXAMINATION TYPE: XR chest 1V portable DATE OF EXAM: 12/17/2024 10:32 AM COMPARISON: Chest radiographs from 12/16/2024 TECHNIQUE: XR chest 1V portable Portable AP radiograph of the chest. CLINICAL INDICATION:Female, 84 years old with history of assess ngt placement; FINDINGS: Patient is rotated which limits evaluation. Lungs/Pleura: There is no evidence of pleural effusion, focal consolidation, or pneumothorax. Pulmonary vascularity: Minimal pulmonary vascular congestion. Heart/mediastinum: Cardiomediastinal silhouette is enlarged and stable. Atherosclerotic calcificatio ns are seen in the aorta. Musculoskeletal: No acute osseous pathology. Other findings: None Lines/Tubes: Right IJ central venous catheter with distal tip at the superior cavoatrial junction. NG tube with distal tip and sidehole in the region of the stomach. IMPRESSION: 1. NG tube in appropriate position. 2. Stable right IJ central venous catheter with distal tip at the superior cavoatrial junction. 3. Cardiomegaly with minimal pulmonary vascular congestion. [facility], , 12/17/2024 10:36 AM
[2024-12-17 11:15] LABS: Glucose,Whole Blood 151 mg/dL (70-110)
--- NOTE | 2024-12-17 11:41 | P.CNNES ---
History of Present Illness Consult date: 12/17/24 Requesting physician: Jimmy Ulrich Reason for Consult: Code stroke History of Present Illness: Patient is a 84-year-old female with history of hypertension, hyperlipidemia, diabetes, CKD, previous CVA, seizure disorder came to the hospital transferred from [facility], day before yesterday 12/15/2024 for subclavian steal syndrome. I spoke to patient's daughters who provided with a history. T hey mentioned that patient has been having dizziness, lightheadedness, getting short of breath off and on for last 1 year. Patient had a cardiac catheterization performed on 12/09/2024 at [facility] which revealed mild mid LAD 60 to 70% stenosis in mid to distal RCA 50 to 60% stenosis. Elevated left-sided filling pressure. Patient was subsequently discharged. She was seen at her hand tire trimmer Dr. Cox office, and was noted to have low hemoglobin, low sodium, increased white cells and low blood pressure. She was admitted to [facility]. CTA showed subclavian artery stenosis. She was transferred to [facility] for subclavian artery stenting for subclavian steal syndrome. Apparently patient has been having low readings of blood pressure with the arm cuff, but checking with the art line, it was noted to be very high, likely because of subclavian steal. Patient underwent ascending aortic root angiography, selective bilateral carotid angiogram, stenting of the ostium innominate artery with 7.0 x 27 mm expandable stent yesterday afternoon. Final impression was nominated artery 99% stenosis, 100% left subclavian stenosis. Status post stenting of the innominate artery. Patient postprocedure developed altered mental status, with aphasia and some foc al symptoms. Stroke code was activated. Patient underwent CT of the head, which revealed no areas of acute brothers-white matter loss of differentiation identified. 2 areas in the cerebellum and one in the right frontal lobe cortex of high density suggesting mineralization such as in setting of pseudo laminar necrosis. Further evaluation with MRI recommended. Remote left frontal lobe injury with encephalomalacia. Nonspecific white matter changes. I personally reviewed CT head agree with the findings. Patient was loaded with Plavix 600 mg at 4:28 PM yesterday. This was continued today at 75 mg daily. Patient also given aspirin 325 mg. Per patient's family, patient has been living by herself, she cooks, cleans, does laundry. However she does not do any driving, as she has never driven. Patient's family mentions that her last known well was 12/15/2024 when she was talking, communicating. Yesterday morning, even before she went for the procedure, she was "out of it". She was just mumbling, not feeling well. However after the procedure she became completely aphasic as mentioned. Patient has history of diabetes for 5 years, hypertension. She smoked 1 pack/ day from age [age] years of age when she quit. She drinks alcohol occasionally. Patient has history of seizures in the past. She had about 3-4 grand mal seizure in her life. The last one was about 10 to 15 years ago. She has been off seizure medications for last 5 to 8 years. Review of Systems ROS unobtainable: due to mental status Past Medical History Past Medical History: Asthma, COPD, CVA/TIA, Diabetes Mellitus, GERD/Reflux, Hyperlipidemia, Hypertension, Memory Impairment, Osteoarthritis (OA), Seizure Disorder Additional Past Medical History / Comment(s): "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 LAST SEIZURE APPROXIMATELY YRS AGO (2012)., SOB w/exertion, started within the last year, recent stress test, recent fall last week @home & hurt ribs, never went to be checked by her PCP History of Any Multi-Drug Resistant Organisms: None Reported Past Surgical History: Appendectomy, Hysterectomy, Orthopedic Surgery Additional Past Surgical History / Comment(s): BILATERAL SHOULDER SURGERY. Past Anesthesia/Blood Transfusion Reactions: No Reported Reaction Past Psychological History: Anxiety Smoking Status: Former smoker Past Alcohol Use History: None Reported Additional Past Alcohol Use History / Comment(s): quit smoking 2007, <ppd 36 yr s. Past Drug Use History: None Reported - Past Family History Father Family Medical History: Cancer Additional Family Medical History / Comment(s): Kidney ca Sister(s) Family Medical History: Cancer Additional Family Medical History / Comment(s): Sister had lung cancer Medications and Allergies Home Medications Medication Instructions Recorded Confirmed Type Aspirin 81 mg PO DAILY 12/06/24 12/15/24 History Cholecalciferol [Vitamin D3 (25 25 mcg PO DAILY 12/06/24 12/15/24 History Mcg = 1000 Iu)] Citalopram Hydrobromide [CeleXA] 10 mg PO DAILY 12/06/24 12/15/24 History Ferrous Sulfate [Feosol] 325 mg PO DAILY 12/06/24 12/15/24 History Magnesium 500 mg PO DAILY 12/06/24 12/15/24 History Montelukast [Singulair] 10 mg PO DAILY 12/06/24 12/15/24 History Multivitamins, Thera [Multivitamin 1 tab PO DAILY 12/06/24 12/15/24 History (formulary)] Pravastatin Sodium [Pravachol] 20 mg PO DAILY 12/06/24 12/15/24 History Furosemide [Lasix] 40 mg PO DAILY 12/15/24 12/15/24 History diphenhydrAMINE [Benadryl] 25 mg PO HS 12/15/24 12/15/24 History metFORMIN HCL ER [Glucophage XR] 500 mg PO BID 12/15/24 12/15/24 History oxyCODONE-APAP 7.5-325MG [Percocet 0.5 - 1 tab PO QID PRN 12/15/24 12/15/24 History 7.5-325 mg] Allergies Allergy/AdvReac Type Severity Reaction Status Date / Time albuterol Allergy Swelling. Verified 12/15/24 17:47 RASH codeine Allergy Rash/Hives. Verified 12/15/24 17:47 SWELLING methylprednisolone Allergy Swelling. Verified 12/15/24 17:47 [From Medrol] RASH Penicillins Allergy Swelling. Verified 12/15/24 17:47 RASH Physical Examination - Vital Signs Vital Signs: Vital Signs Temp Pulse Resp Pulse Ox 12/17/24 10:30 86 16 98 12/17/24 10:00 87 16 100 12/17/24 09:30 109 H 18 100 12/17/24 09:00 101 H 20 99 12/17/24 08:30 85 19 100 12/17/24 08:00 86 14 100 12/17/24 07:30 97.7 F 80 22 100 12/17/24 07:00 67 13 100 12/17/24 06:30 85 15 98 12/17/24 06:00 79 18 99 12/17/24 05:30 89 15 100 12/17/24 05:00 79 15 100 12/17/24 04:30 87 16 98 12/17/24 04:00 97.4 F L 67 18 100 12/17/24 03:30 57 L 15 100 12/17/24 03:00 78 15 100 12/17/24 02:30 80 18 100 12/17/24 02:00 67 17 100 12/17/24 01:30 75 14 100 12/17/24 01:00 73 13 100 12/17/24 00:30 80 12 12/17/24 00:00 97.8 F 77 12 100 12/16/24 23:30 79 12 100 12/16/24 23:00 61 16 100 12/16/24 22:30 92 18 100 12/16/24 22:00 79 12 100 12/16/24 21:30 81 20 100 12/16/24 21:00 78 13 12/16/24 20:30 75 19 99 12/16/24 20:00 97.6 F 82 12 100 12/16/24 19:30 82 20 100 12/16/24 19:00 87 12/16/24 15:00 74 19 95 12/16/24 14:30 67 16 92 L 12/16/24 14:00 70 18 93 L 12/16/24 13:30 67 16 92 L 12/16/24 13:00 70 16 92 L 12/16/24 12:30 68 18 93 L 12/16/24 12:00 98.1 F 71 19 92 L 12/16/24 11:30 68 17 92 L 12/16/24 11:00 26 H 94 L Intake and Output 12/16/24 12/17/24 12/17/24 22:59 06:59 14:59 Intake Total 99 78 68 Output Total 290 320 80 Balance -191 -242 -12 Intake: IV 99 78 18 Sodium Chloride 0.9% 1, 75 000 ml @ 75 mls/hr IV . [id number] [facility] Rx#:[id number] pressure bags 24 78 18 Intake, IV Titration 50 Amount cefTRIAXone 1 gm In 50 Sodium Chloride 0.9% 50 ml @ 100 mls/hr IVPB Q24HR [facility] Rx#:[id number] Output: Urine 290 320 80 Other: Voiding Method Indwelling Catheter Indwelling Catheter # Bowel Movements 1 Weight 84.1 kg ABP, PAP, CO, CI - Last 8 Hours Arterial Blood Pressure 173/43 Arterial Blood Pressure 153/11 Arterial Blood Pressure 187/46 Arterial Blood Pressure 184/48 Arterial Blood Pressure 162/40 Arterial Blood Pressure 189/41 Arterial Blood Pressure 176/37 Arterial Blood Pressure 165/34 Arterial Blood Pressure 172/41 Arterial Blood Pressure 176/39 Arterial Blood Pressure 186/40 Arterial Blood Pressure 167/42 Arterial Blood Pressure 179/45 Arterial Blood Pressure 136/32 Arterial Blood Pressure 133/29 Arterial Blood Pressure 162/39 Patient is an elderly female, who is obtunded, lethargic, laying in the bed in mild distress. She is obviously frothing from the mouth, with drooling from right corner of the mouth. Patient is completely aphasic, not able to follow any directions, mute, not able to name or repeat. Attention concentration is severely decreased. Fund of knowledge cannot be assessed. On cranial nerve examination, pupils are equal, round and reacting to light, visual chávez could not be tested. Extraocular muscles could not be tested because of noncooperation. She would keep her eyes closed type chart. She has obvious right facial droop, and right-sided drooling. Other cranial nerves could not be assessed. She has NG tube placed. On muscle strength testing, patient is flaccid in the right upper limb. She is spontaneously moving the left upper limb and withdraws to pain. She is moving her lower extremities spontaneously to some extent and also slightly withdrawing and facial grimacing with painful stimuli. Deep tendon reflexes are 1+ in the right upper limb, trace in the left upper limb. 2+ to 3 at the knees. Plantar is upgoing on the right, down on the left. Sensory to touch as mentioned above. Cerebellar function cannot be assessed. Tone is decreased in the right upper limb and bulk of muscles normal. Gait deferred.. On general examination, there is no carotid bruit or murmur, S1-S2 audible. Chest is clear on consultation. Abdomen is soft nontender. No organomegaly, bowel sounds present. Peripheral pulses are present. No peripheral edema. Results - Laboratory Findings CBC and BMP: 12/17/24 05:58 12/17/24 05:58 Abnormal Lab Findings: Abnormal Labs 12/15/24 12/15/24 12/15/24 14:43 18:00 18:00 WBC 19.40 H RBC 3.14 L Hgb 8.9 L Hct 27.2 L MPV Immature Gran # 0.20 H Neutrophils # 17.20 H Lymphocytes # 0.85 L Monocytes # 1.12 H Eosinophils # 0.00 L ABG pH ABG pO2 ABG HCO3 ABG O2 Saturation Hemoglobin Sodium 127 L Chloride Carbon Dioxide 19 L Glucose 175 H POC Glucose (mg/dL) 165 H Total Protein Albumin Urine Appearance Urine Protein Urine Glucose (UA) Urine Blood Ur Leukocyte Esterase Urine RBC Urine WBC Urine Bacteria Urine Mucus 12/15/24 12/16/24 12/16/24 18:11 02:50 02:50 WBC 17.89 H RBC 3.14 L Hgb 8.8 L Hct 27.4 L MPV 9.2 L Immature Gran # 0.15 H Neutrophils # 15.30 H Lymphocytes # Monocytes # Eosinophils # ABG pH ABG pO2 ABG HCO3 ABG O2 Saturation Hemoglobin Sodium 127 L Chloride Carbon Dioxide 19 L Glucose 134 H POC Glucose (mg/dL) Total Protein Albumin Urine Appearance Cloudy H Urine Protein 2+ H Urine Glucose (UA) 1+ H Urine Blood Large H Ur Leukocyte Esterase Trace H Urine RBC >182 H Urine WBC 42 H Urine Bacteria Rare H Urine Mucus Occasional H 12/16/24 12/16/24 12/16/24 06:19 10:14 15:11 WBC RBC Hgb Hct MPV Immature Gran # Neutrophils # Lymphocytes # Monocytes # Eosinophils # ABG pH ABG pO2 ABG HCO3 ABG O2 Saturation Hemoglobin Sodium Chloride Carbon Dioxide Glucose POC Glucose (mg/dL) 187 H 135 H 135 H Total Protein Albumin Urine Appearance Urine Protein Urine Glucose (UA) Urine Blood Ur Leukocyte Esterase Urine RBC Urine WBC Urine Bacteria Urine Mucus 12/16/24 12/16/24 12/16/24 18:14 19:12 20:02 WBC RBC Hgb Hct MPV Immature Gran # Neutrophils # Lymphocytes # Monocytes # Eosinophils # ABG pH 7.29 L ABG pO2 207 H ABG HCO3 20 L ABG O2 Saturation >100.0 H Hemoglobin 8.7 L Sodium Chloride Carbon Dioxide Glucose POC Glucose (mg/dL) 180 H 179 H Total Protein Albumin Urine Appearance Urine Protein Urine Glucose (UA) Urine Blood Ur Leukocyte Esterase Urine RBC Urine WBC Urine Bacteria Urine Mucus 12/17/24 12/17/24 12/17/24 05:58 05:58 07:03 WBC 20.50 H RBC 2.71 L Hgb 7.7 L Hct 23.9 L MPV 9.3 L Immature Gran # 0.31 H Neutrophils # 17.91 H Lymphocytes # Monocytes # 1.09 H Eosinophils # ABG pH ABG pO2 ABG HCO3 ABG O2 Saturation Hemoglobin Sodium 132 L Chloride 108 H Carbon Dioxide 21 L Glucose 127 H POC Glucose (mg/dL) 140 H Total Protein 4.5 L Albumin 2.2 L Urine Appearance Urine Protein Urine Glucose (UA) Urine Blood Ur Leukocyte Esterase Urine RBC Urine WBC Urine Bacteria Urine Mucus Assessment and Plan Assessment: * Acute ischemic stroke following stenting of the left subclavian artery s tenosis. Patient is completely aphasic, right hemiparetic, mainly involving the right arm more than leg. Her NIH stroke scale is quite high at because of mentation. * Bilateral subclavian stenosis, status post stenting of the innominate artery * Hypertension * Diabetes * Seizure disorder, in remission * Obesity * Coronary artery disease * Pleural effusion * Ex tobacco use Plan: * Stat CT head follow-up on CVA, rule out any intracranial hemorrhage. * Patient has received Plavix 600 mg loading dose yesterday. Continue Plavix 75 mg and aspirin as recommended by stroke neurologist . * If patient cannot have medications orally, then recommend NGT placement. * CTA of head and neck revealed calcified and noncalcified plaque in the origin of the left subclavian artery with occlusion. Correlate for subclavian steal phenomenon. No evidence of dissection of the cervical internal carotid arteries or vertebral arteries. Calcified plaque at the carotid bifurcation with up to 50% stenosis bilaterally. * 2D echo with bubble study, rule out PFO. * Fasting a.m. lipid panel, hemoglobin A1c * Telemetry monitoring * DVT prophylaxis * Discussed with patient's both daughters in detail. * Further management based upon the above CT head results. * Thank you for the consult. Addendum #1: CT head revealed new loss of brothers-white matter differentiation within the right parietal lobe and possibly right occipital lobe. Suggestive of ischemia. Less pronounced areas of high density in the cortex compared to 12/16/2024. Attention on follow-up schedule MRI. Remote left frontal lobe injury with encephalomalacia. Nonspecific white matter changes. I personally reviewed CT head and agree with the findings. We will perform stat MRI and EEG. Addendum #2: MRI of the brain revealed multiple bilateral multifocal acute/subacute infarcts. It involves bilateral anterior and posterior circulation, consistent with cardioembolic strokes. EEG was also performed, which did not reveal any epileptiform activity, only background slowing of moderate to severe degree. Time with Patient: Greater than 30
--- NOTE | 2024-12-17 11:59 | P.PN ---
Subjective Progress Note Date: 12/17/24 Patient is a 84-year-old female transferred from [facility] yesterday. Documented past medical history including hypertension, hyperlipidemia, diabetes mellitus, CVA/TIA, seizure disorder, CKD, chronic anemia. Reportedly, concerns of peripheral hypotension despite central hypertension. Imaging done at the outside facility including a chest CT angiogram concerning for bilateral subclavian stenosis and possible additional subclavian steal syndrome. Poor opacification thought to be related to the severe stenosis. A femoral arterial line catheter was placed identifying severe hypertension, reportedly as high as 270/100 mmHg. Previously, placed on IV nitroglycerin at outside facility, and now on oral antihypertensives.. Of note, patient previously underwent left and right-sided heart catheterization on 12/09/2024 identifying coronary artery disease with mid LAD 60 to 70% stenosis, mid distal RCA 50 to 60% stenosis. High left-sided filling pressures. Additionally, major discrepancy noted in systemic blood pressure reading and blood pressure cuff which was identified at 70/40's mmHg. Her central aortic pressure was in the order of 220-240 over 80 mmHg. Labs including a CBC with a WBC count of 19.4, hemoglobin 8.9, platelets 393. BMP with sodium 127, potassium 4.5, chloride 101, serum bicarb 19, BUN 17, creatinine 0.96, glucose 175. Urinalysis positive for pyuria and bacteriuria. Empirically placed on Rocephin previously. Normal saline infusing at 75 mL/h. Patient being seen in the intensive care unit. She does not have any specific complaints. She is resting comfortably on room air. SpO2 reading 93% on bedside monitor. Heart rhythm appears normal sinus with frequent PACs. Blood pressure is now normotensive, currently reading 115/72 mmHg via a right femoral arterial line. Nitroglycerin has previously been stopped. She is on a combination of oral antihypertensives including Norvasc, losartan, Aldactone. She does report occasional bilateral arm and hand numbness and tingling with activity. Admits to frontal headache, almost 1 week. Currently resolved. Also, reports blurred vision over the last couple months. Denies hearing loss, tinnitus, dizziness, syncope. Denies any chest pain, heart palpitations, lower extremity edema, shortness of breath. She has remained hemodynamically stable, awaiting cardiovascular recommendations. The patient is seen today December 17, 2024 in follow-up in the intensive care unit. 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 She did undergo stenting of the ostium of the innominate artery. During the procedure she developed for strokelike symptoms and a code stroke was called. CT scan of the brain revealed no areas of acute brothers-white matter loss or differentiation identified. 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 Remote left frontal lobe injury with encephalomalacia. CT angiogram revealed calcified and noncalcified plaque at the origin and near the origin of the left subclavian artery with occlusion. Correlate for subclavian steal phenomenon. No evidence of dissection of the cervical internal carotid arteries or vertebral arteries. Calcified plaque in the carotid bifurcations up to 50% stenosis bilaterally. No evidence of intracranial high-grade stenosis or intracranial aneurysm. Today the patient remains aphasic. Not able to follow any commands. She is maintaining O2 saturations in the 90s on 2 L/min per nasal cannula. She has normal saline at KVO. White count 20.5. Hemoglobin 7.7. Platelets 411. Sodium 132. Potassium 4.3. Bicarb 21. BUN 17. Creatinine 0.99. Glucose 127. She remains on aspirin and Plavix. Chest x-ray reveals NG tube in appropriate position. Stable right IJ central venous catheter in place. Cardiomegaly with minimal pulmonary vascular congestion. Objective - Vital Signs Vital signs: Vital Signs Temp 97.7 F 12/17/24 07:30 Pulse 97 12/17/24 11:00 Resp 12 12/17/24 11:00 BP 58/31 12/17/24 06:30 Pulse Ox 98 12/17/24 11:00 FiO2 Intake & Output 12/16/24 12/17/24 12/17/24 18:59 06:59 18:59 Intake Total 729 96 86 Output Total 360 570 180 Balance 648 -021 -41 Weight 84.2 kg 84.1 kg Intake: IV 729 96 36 Sodium Chloride 0.9% 1, 675 000 ml @ 75 mls/hr IV . [id number] [facility] Rx#:[id number] pressure bags 54 96 36 Intake, IV Titration 50 Amount cefTRIAXone 1 gm In 50 Sodium Chloride 0.9% 50 ml @ 100 mls/hr IVPB Q24HR [facility] Rx#:[id number] Output: Urine 360 570 180 Other: Voiding Method Indwelling Catheter Indwelling Catheter # Bowel Movements 1 ABP, PAP, CO, CI - Last Documented Arterial Blood Pressure 198/53 - Exam GENERAL EXAM: Alert, aphasic, not following commands 84-year-old female, on 2 L nasal cannula, comfortable in no apparent distress. HEAD: Normocephalic. EYES: Normal reaction of pupils, equal size. NOSE: Clear with pink turbinates. Nasogastric tube secured in place. THROAT: No erythema or exudates. NECK: No masses, no JVD. CHEST: No chest wall deformity. Right subclavian triple-lumen catheter secured in place. LUNGS: Equal air entry with no crackles, wheeze, rhonchi or dullness. CVS: S1 and S2 normal with no audible murmur, regular rhythm. ABDOMEN: No hepatosplenomegaly, normal bowel sounds, no guarding or rigidity. SPINE: No scoliosis or deformity SKIN: No rashes CENTRAL NERVOUS SYSTEM: Tone is normal in all 4 extremities. EXTREMITIES: There is no peripheral edema. No clubbing, no cyanosis. Peripher al pulses are intact. - Labs CBC & Chem 7: 12/17/24 05:58 12/17/24 05:58 Labs: Abnormal Lab Results - Last 24 Hours (Table) 12/16/24 12/16/24 12/16/24 Range/Units 15:11 18:14 19:12 WBC (4.50-10.00) 10*3/uL RBC (4.10-5.20) 10*6/uL Hgb (12.0-15.0) g/dL Hct (37.2-46.3) % MPV (9.5-12.2) fL Immature Gran # (0.00-0.04) 10*3/uL Neutrophils # (1.80-7.70) 10*3/uL Monocytes # (0.20-1.00) 10*3/uL ABG pH 7.29 L (7.35-7.45) ABG pO2 207 H (83-108) mmHg ABG HCO3 20 L (21-25) mmol/L ABG O2 Saturation >100.0 H (94-97) % Hemoglobin 8.7 L (11.4-16.0) gm/dL Sodium (137-145) mmol/L Chloride (98-107) mmol/L Carbon Dioxide (22-30) mmol/L Glucose (74-99) mg/dL POC Glucose (mg/dL) 135 H 180 H (70-110) mg/dL Total Protein (6.3-8.2) g/dL Albumin (3.5-5.0) g/dL 12/16/24 12/17/24 12/17/24 Range/Units 20:02 05:58 05:58 WBC 20.50 H (4.50-10.00) 10*3/uL RBC 2.71 L (4.10-5.20) 10*6/uL Hgb 7.7 L (12.0-15.0) g/dL Hct 23.9 L (37.2-46.3) % MPV 9.3 L (9.5-12.2) fL Immature Gran # 0.31 H (0.00-0.04) 10*3/uL Neutrophils # 17.91 H (1.80-7.70) 10*3/uL Monocytes # 1.09 H (0.20-1.00) 10*3/uL ABG pH (7.35-7.45) ABG pO2 (83-108) mmHg ABG HCO3 (21-25) mmol/L ABG O2 Saturation (94-97) % Hemoglobin (11.4-16.0) gm/dL Sodium 132 L (137-145) mmol/L Chloride 108 H (98-107) mmol/L Carbon Dioxide 21 L (22-30) mmol/L Glucose 127 H (74-99) mg/dL POC Glucose (mg/dL) 179 H (70-110) mg/dL Total Protein 4.5 L (6.3-8.2) g/dL Albumin 2.2 L (3.5-5.0) g/dL 12/17/24 12/17/24 Range/Units 07:03 11:14 WBC (4.50-10.00) 10*3/uL RBC (4.10-5.20) 10*6/uL Hgb (12.0-15.0) g/dL Hct (37.2-46.3) % MPV (9.5-12.2) fL Immature Gran # (0.00-0.04) 10*3/uL Neutrophils # (1.80-7.70) 10*3/uL Monocytes # (0.20-1.00) 10*3/uL ABG pH (7.35-7.45) ABG pO2 (83-108) mmHg ABG HCO3 (21-25) mmol/L ABG O2 Saturation (94-97) % Hemoglobin (11.4-16.0) gm/dL Sodium (137-145) mmol/L Chloride (98-107) mmol/L Carbon Dioxide (22-30) mmol/L Glucose (74-99) mg/dL POC Glucose (mg/dL) 140 H 151 H (70-110) mg/dL Total Protein (6.3-8.2) g/dL Albumin (3.5-5.0) g/dL Microbiology - Last 24 Hours (Table) 12/15/24 18:11 Urine Culture - Final Urine,Voided Assessment and Plan Assessment: Transferred from outside facility with concerns of bilateral subclavian artery stenosis. 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 She did undergo stenting of the ostium of the innominate artery. During the procedure she developed for stroke-like symptoms and a code stroke was called Acute CVA with aphasia and inability to follow commands. CT scan of the brain revealed no areas of acute brothers-white matter loss or differentiation identified. 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 Remote left frontal lobe injury with encephalomalacia. CT angiogram revealed calcified and noncalcified plaque at the origin and near the origin of the left subclavian artery with occlusion. Correlate for subclavian steal phenomenon. No evidence of dissection of the cervical internal carotid arteries or vertebral arteries. Calcified plaque in the carotid bifurcations up to 50% stenosis bilaterally. No evidence of intracranial high-grade stenosis or intracranial aneurysm. Hypertensive urgency, previously on nitroglycerin infusion at outside facility, now started on p.o. antihypertensives. Recent right and left heart catheterization on 12/09/2024 identifying coronary artery disease including mid LAD 60 to 70% stenosis, mid distal RCA 50 to 60% stenosis. High left-sided filling pressures. Additionally, major discrepancy noted in systemic blood pressure reading and blood pressure cuff which was reported at 70/40's mmHg. 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 Acute leukocytosis Anemia, normocytic and normochromic Hyponatremia, appears euvolemic Nonobstructive coronary artery disease, as reported during heart catheterization History of hyperlipidemia Diabetes mellitus History of CVA/TIA. History of asthma, not in exacerbation Plan: The patient was seen and evaluated Chest x-ray, labs and medications reviewed CT scan and CT angiography of the brain reviewed CVL records reviewed Code stroke records reviewed Evaluated by neurosurgeon Remains on aspirin and Plavix Remains on statins Remains aphasic Unable to follow commands To be seen by neurology On oxygen at 2 L/min per nasal cannula We will continue to follow and make further recommendations based on her clinical status I have personally seen and examined the patient, performed the documentation and the assessment and plan as written. Number of minutes spent on the visit: 10 Dictation was produced using [employer] dictation software. Please excuse any grammatical, word or spelling errors.
--- NOTE | 2024-12-17 12:11 | CT ---
EXAMINATION TYPE: CT brain wo con DATE OF EXAM: 12/17/2024 11:48 AM COMPARISON: CT 12/16/2024.. CLINICAL INDICATION: Female, 84 years old with history of cva, AMS TECHNIQUE: Brain: Axial CT images of the brain were obtained with coronal and sagittal reformats created and rev iewed. Contrast used: None. Oral contrast used: None. CT DLP: 1141.4 mGycm, Automated exposure control for dose reduction was used. FINDINGS: Brain: Extra-axial spaces: No abnormal extra-axial fluid collections. Ventricular system: Within normal limits Cerebral parenchyma: Encephalomalacia of the left parietal region from prior injury. High density mat erial in the brothers matter of the right frontal lobe series 11 image 29 as well as the cortex of the bi lateral cerebellum the left frontal lobe from prior injury. No acute intraparenchymal hemorrhage or mass effect. New area of brothers-white matter loss differentiat ion of the right parietal region series 2032 image 39 as well as within the right occipital lobe 28. Scattered hypoattenuating areas are seen within the white matter. Cerebellum: Decrease in density of the high density areas in the brothers matter bilaterally. Mass effect: No evidence of midline shift. Intracranial vasculature: Atherosclerotic calcifications of the intracranial vessels. Soft tissues: Normal. Calvarium/osseous structures: No depressed skull fracture. Paranasal sinuses and mastoid air cells: Mild scattered paranasal sinus disease. Visualized orbits: Orbital contents are intact. IMPRESSION: 1. New loss of brothers-white matter differentiation within the right parietal lobe and possibly right o ccipital lobe. Suggestive of ischemia. 2. Less pronounced areas of high density in the cortex compared to 12/16/2024. Attention on follow-up scheduled MRI. 3. Remote left frontal lobe injury with encephalomalacia. 4. Nonspecific white matter changes. Findings communicated to Tony Zavaleta 12/17/2024 12:[address] Marco Pérez. [facility], , 12/17/2024 12:08 PM
[2024-12-17 13:13] LABS: Glucose,Whole Blood 149 mg/dL (70-110)
[2024-12-17] MEDS: hydroCHLOROthiazide 25 MG TAB PO SCH (13:33)
--- NOTE | 2024-12-17 15:01 | MR ---
EXAMINATION TYPE: MR brain wo con DATE OF EXAM: 12/17/2024 COMPARISON: CT brain from earlier today and older studies HISTORY: CVA TECHNIQUE: Multiplanar, multisequence imaging of the brain and brainstem is performed without IV cont rast. FINDINGS: There are multifocal areas of increased signal on diffusion-weighted images corresponding to areas of diminished signal on ADC mapping involving bilateral cerebral and cerebellar hemispheres greater on the right side. There is predominantly subcortical involvement but some areas of deeper involvement i n the right parietal region. Areas of increased T2 signal identified at these levels. Large areas josué w diminished T2 signal. Persist an old infarct left inferior parietal region. There is moderate ventricular and sulcal prominence redemonstrated. Midline structures demonstrate normal morphology. The craniocervical junction appears within normal limits. Normal vascular flow voids moderate ventricular and sulcal prominence redemonstrated are pres ent. The visualized sinuses are clear and the globes are intact. IMPRESSION: Multiple bilateral multifocal acute/subacute infarcts as detailed above. [facility], , 12/17/2024 2:59 PM
--- NOTE | 2024-12-17 15:26 | P.PN ---
Subjective Progress Note Date: 12/17/24 Dr. Shledon's addendum Patient was seen and examined at bedside with the resident. Yesterday patient underwent the PCI of the right innominate artery but subsequently there was a concern of possible stroke. Currently she has been evaluated by neurology and is awaiting a MRI brain. She had did not show any evidence of bleeding with antiplatelet therapy. Patient is a 84-year-old female with history of hypertension, hyperlipidemia, diabetes mellitus, CKD, chronic anemia, CVA/TIA and seizure disorder is a transfer from [facility] yesterday on 12/15/2024. As per the documentation, patient was sent to the [facility] emergency with concerns for hypotension when she was at pulmonology Dr. Cox's office. At [facility], patient had a chest CT angiogram which was concerning for bilateral subclavian stenosis and possible additional subclavian steal syndrome. Patient had a placement of femoral arterial line catheter at the outside facility with a blood pressure of as high as 270/100 mmHg. Patient was treated with IV nitroglycerin and currently is on antihypertensive medication. She is Dr. Rivera's patient. Patient underwent left and right heart catheterization due to abnormal stress test and pulmonary hypertension on 12/09/2024 identifying coronary artery disease including mid LAD 60 to 70% stenosis and mid to distal RCA 50 to 60% stenosis. Elevated left-sided filling pressures. Abnormal RFR of LAD. Patient is currently in the ICU. Patient denies any chest pain, shortness of breath, lightheadedness lower extremity edema. Patient is currently on oral antihypertensive medications including amlodipine, losartan and Aldactone. 12/17/2024: Patient seen and examined at the bedside. 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 During the procedure, patient developed strokelike symptoms and code stroke was called. Initial CT brain did not show any sign of acute stroke. Repeat brain CT today does show new loss of brothers-white matter differentiation within the right parietal lobe and possible right occipital lobe suggestive of ischemia. MRI of the brain is pending. Patient has been experiencing left upper and lower extremity paresthesia with left facial droop. She is currently aphasic. Pertinent labs: WBC 20.5, hemoglobin 7.7, sodium 132, potassium 4.3, BUN 17, creatinine 0.99 Review of systems: Pertinent positives and negatives as discussed in HPI, a complete review of systems was performed and all other systems are negative. Social history: Tobacco: Former smoker Physical examination: Vital signs reviewed General: non toxic, no distress, appears at stated age, morbidly obese Neck: No cervical lymphadenopathy, trachea midline, supple, no JVP Mouth: Right facial droop noted Cardiovascular: S1S2 reg, no murmur, positive dorsalis pedis pulse bilateral, no edema Lungs: Diffuse inspiratory and expiratory wheezes noted. No rales or crackles noted. No use of accessory respiratory muscle. Abdominal: soft, nontender to palpation, no guarding Neuro: Left upper and lower extremity paresthesia Psych: Alert, oriented, appropriate affect Assessment: #Bilateral subclavian artery stenosis status post stenting of the ostium innominate artery on 12/16/2024 #Acute CVA following stenting of the ostium innominate artery on 12/16/2024 #Central Hypertensive urgency #Coronary artery disease based on recent right and left heart catheterization on 12/09/2024 #Leukocytosis, reactive versus infectious #Normocytic anemia #Hyperlipidemia #Euvolemic hyponatremia Plan: Continue with amlodipine 10 mg once daily, losartan 100 mg p.o. once daily 50 mg p.o. once daily Continue hydralazine 50 mg every 6 hours as needed for SBP more than 180 Add hydralazine 50mg po qid prn Patient is currently hemodynamically stable and in ICU MRI brain pending Continue to monitor vital signs Stroke management per neurology Abx per primary team Objective - Vital Signs Vital signs: Vital Signs Temp 8.1 F L 12/17/24 13:00 Pulse 105 H 12/17/24 13:00 Resp 15 12/17/24 13:00 BP 58/31 12/17/24 06:30 Pulse Ox 98 12/17/24 13:00 FiO2 Intake & Output 12/16/24 12/17/24 12/17/24 18:59 06:59 18:59 Intake Total 729 96 134 Output Total 360 634 604 Balance 077 -377 -140 Weight 84.2 kg 84.1 kg Intake: IV 729 96 84 Sodium Chloride 0.9% 1, 675 30 000 ml @ 75 mls/hr IV . [id number] [facility] Rx#:[id number] pressure bags 54 96 54 Intake, IV Titration 50 Amount cefTRIAXone 1 gm In 50 Sodium Chloride 0.9% 50 ml @ 100 mls/hr IVPB Q24HR [facility] Rx#:[id number] Output: Urine 360 570 260 Other: Voiding Method Indwelling Catheter Indwelling Catheter # Bowel Movements 1 ABP, PAP, CO, CI - Last Documented Arterial Blood Pressure 195/44 - Labs CBC & Chem 7: 12/18/24 03:37 12/18/24 03:37 Labs: Abnormal Lab Results - Last 24 Hours (Table) 12/16/24 12/16/24 12/16/24 Range/Units 18:14 19:12 20:02 WBC (4.50-10.00) 10*3/uL RBC (4.10-5.20) 10*6/uL Hgb (12.0-15.0) g/dL Hct (37.2-46.3) % MPV (9.5-12.2) fL Immature Gran # (0.00-0.04) 10*3/uL Neutrophils # (1.80-7.70) 10*3/uL Monocytes # (0.20-1.00) 10*3/uL ABG pH 7.29 L (7.35-7.45) ABG pO2 207 H (83-108) mmHg ABG HCO3 20 L (21-25) mmol/L ABG O2 Saturation >100.0 H (94-97) % Hemoglobin 8.7 L (11.4-16.0) gm/dL Sodium (137-145) mmol/L Chloride (98-107) mmol/L Carbon Dioxide (22-30) mmol/L Glucose (74-99) mg/dL POC Glucose (mg/dL) 180 H 179 H (70-110) mg/dL Total Protein (6.3-8.2) g/dL Albumin (3.5-5.0) g/dL 12/17/24 12/17/24 12/17/24 Range/Units 05:58 05:58 07:03 WBC 20.50 H (4.50-10.00) 10*3/uL RBC 2.71 L (4.10-5.20) 10*6/uL Hgb 7.7 L (12.0-15.0) g/dL Hct 23.9 L (37.2-46.3) % MPV 9.3 L (9.5-12.2) fL Immature Gran # 0.31 H (0.00-0.04) 10*3/uL Neutrophils # 17.91 H (1.80-7.70) 10*3/uL Monocytes # 1.09 H (0.20-1.00) 10*3/uL ABG pH (7.35-7.45) ABG pO2 (83-108) mmHg ABG HCO3 (21-25) mmol/L ABG O2 Saturation (94-97) % Hemoglobin (11.4-16.0) gm/dL Sodium 132 L (137-145) mmol/L Chloride 108 H (98-107) mmol/L Carbon Dioxide 21 L (22-30) mmol/L Glucose 127 H (74-99) mg/dL POC Glucose (mg/dL) 140 H (70-110) mg/dL Total Protein 4.5 L (6.3-8.2) g/dL Albumin 2.2 L (3.5-5.0) g/dL 12/17/24/02/03 Range/Units 11:14 13:12 WBC (4.50-10.00) 10*3/uL RBC (4.10-5.20) 10*6/uL Hgb (12.0-15.0) g/dL Hct (37.2-46.3) % MPV (9.5-12.2) fL Immature Gran # (0.00-0.04) 10*3/uL Neutrophils # (1.80-7.70) 10*3/uL Monocytes # (0.20-1.00) 10*3/uL ABG pH (7.35-7.45) ABG pO2 (83-108) mmHg ABG HCO3 (21-25) mmol/L ABG O2 Saturation (94-97) % Hemoglobin (11.4-16.0) gm/dL Sodium (137-145) mmol/L Chloride (98-107) mmol/L Carbon Dioxide (22-30) mmol/L Glucose (74-99) mg/dL POC Glucose (mg/dL) 151 H 149 H (70-110) mg/dL Total Protein (6.3-8.2) g/dL Albumin (3.5-5.0) g/dL Microbiology - Last 24 Hours (Table) 12/15/24 18:11 Urine Culture - Final Urine,Voided
[2024-12-17] MEDS: ENOXAPARIN 40 MG/0.4 ML SYRINGE SQ SCH (16:52)
[2024-12-17 18:31] LABS: Glucose,Whole Blood 147 mg/dL (70-110)
[2024-12-17 20:24] LABS: Glucose,Whole Blood 150 mg/dL (70-110)
--- NOTE | 2024-12-17 21:33 | EEG ---
DATE OF SERVICE: 12/17/2024 ELECTROENCEPHALOGRAM REPORT PREAMBLE: This is an 84-year-old female with altered mental status. This study is performed to evaluate for any epileptiform activity. EEG FINDINGS: This is a 21-channel digital EEG recorded with video competent, utilizing 10/20 international system with referential and bipolar montages. Background consists of poorly developed and regulated, mixed frequencies of moderate to high amplitude 2 to 3 hertz delta activity, with some fast frequency theta and some superimposed faster activity in bihemispheric region. Background does not seem to be reactive to eye opening and closing. Photic driving response was not seen. Different stages of sleep were not seen. No focal or generalized epileptiform activity was seen. IMPRESSION: This is an abnormal EEG due to background slowing of [id number] degree. This is suggestive of generalized cerebral dysfunction as can be seen with toxic metabolic encephalopathy or related to diffuse structural brain abnormality. Clinical correlation is recommended. No epileptiform activity was seen. MMODL / IJN: [id number] / MTDD
[2024-12-18 03:58] LABS: HCT 22.0 % (37.2-46.3); HGB 7.1 g/dL (12.0-15.0); MCH 29.0 pg (27.0-32.0); MCHC 32.3 g/dL (32.0-37.0); MCV 89.8 fL (80.0-97.0); Platelet Count 358 10*3/uL (140-440); RBC 2.45 10*6/uL (4.10-5.20); RDW 15.7 % (11.5-14.5); WBC 15.66 10*3/uL (4.50-10.00)
[2024-12-18 04:21] LABS: African American GFR (CKD) 54 (>60 ml/min/1.73 sqM); Anion Gap 5 mmol/L; Blood Urea Nitrogen 16 mg/dL (7-17); Calcium 8.8 mg/dL (8.4-10.2); Carbon Dioxide 22 mmol/L (22-30); Chloride 107 mmol/L (98-107); Glucose 109 mg/dL (74-99); Non-African American GFR(CKD) 47 (>60 ml/min/1.73 sqM); Potassium 4.2 mmol/L (3.5-5.1); Sodium 134 mmol/L (137-145)
[2024-12-18 06:04] LABS: Glucose,Whole Blood 140 mg/dL (70-110)
[2024-12-18] MEDS: LACTATED RINGERS 1,000 ML IV SCH (09:20)
--- NOTE | 2024-12-18 09:51 | P.PN ---
Subjective Progress Note Date: 12/18/24 Patient was seen for a follow-up. Patient continues to be severely aphasic, right hemiparetic, mute, only sighing when examined. Continues to be lethargic. Objective - Vital Signs Vital signs: Vital Signs Temp 98.7 F 12/18/24 08:00 Pulse 59 L 12/18/24 08:00 Resp 17 12/18/24 08:00 BP 99/62 12/17/24 18:00 Pulse Ox 99 12/18/24 09:09 FiO2 Intake & Output 12/17/24 12/18/24 12/18/24 18:59 06:59 18:59 Intake Total 199 158 53 Output Total 455 470 110 Balance -256 -312 -57 Weight 84.1 kg Intake: IV 149 158 53 0.9 kvo 20 Sodium Chloride 0.9% 1, 50 50 000 ml @ 75 mls/hr IV . [id number] [id number] Rx#:[id number] pressure bags 99 108 33 Intake, IV Titration 50 Amount cefTRIAXone 1 gm In 50 Sodium Chloride 0.9% 50 ml @ 100 mls/hr IVPB Q24HR [facility] Rx#:[id number] Output: Urine 455 470 110 Other: Voiding Method Indwelling Catheter Indwelling Catheter ABP, PAP, CO, CI - Last Documented Arterial Blood Pressure 168/37 - Exam On examination patient is lethargic. She is completely mute. She is only sighing a little bit when I was checking plantars. Patient continues to have right facial weakness, slight right gaze preference. Right arm is flaccid. She does move her left arm spontaneously. She is moving both legs slightly to painful stimuli, left slightly better than the right but both appears weak. Patient has bilateral Babinski. Rest of the examination cannot be performed because of mentation. - Labs CBC & Chem 7: 12/18/24 03:37 12/18/24 03:37 Labs: Abnormal Lab Results - Last 24 Hours (Table) 12/17/24 12/17/24 12/17/24 Range/Units 11:14 13:12 18:30 WBC (4.50-10.00) 10*3/uL RBC (4.10-5.20) 10*6/uL Hgb (12.0-15.0) g/dL Hct (37.2-46.3) % Sodium (137-145) mmol/L Creatinine (0.52-1.04) mg/dL Glucose (74-99) mg/dL POC Glucose (mg/dL) 151 H 149 H 147 H (70-110) mg/dL 12/17/24 12/18/24 12/18/24 Range/Units 20:23 03:37 03:37 WBC 15.66 H (4.50-10.00) 10*3/uL RBC 2.45 L (4.10-5.20) 10*6/uL Hgb 7.1 L (12.0-15.0) g/dL Hct 22.0 L (37.2-46.3) % Sodium 134 L (137-145) mmol/L Creatinine 1.10 H (0.52-1.04) mg/dL Glucose 109 H (74-99) mg/dL POC Glucose (mg/dL) 150 H (70-110) mg/dL 12/18/24 Range/Units 06:03 WBC (4.50-10.00) 10*3/uL RBC (4.10-5.20) 10*6/uL Hgb (12.0-15.0) g/dL Hct (37.2-46.3) % Sodium (137-145) mmol/L Creatinine (0.52-1.04) mg/dL Glucose (74-99) mg/dL POC Glucose (mg/dL) 140 H (70-110) mg/dL Assessment and Plan Assessment: * Acute ischemic stroke, multifocal involving bilateral anterior and posterior circulations consistent with cardioembolic stroke. It appears patient's mentation was poor even prior to the procedure of stenting of the innominate artery. Patient is completely aphasic, right hemiparetic, mainly involving the right arm more than leg. Her NIH stroke scale is quite high at because of mentation. * Bilateral subclavian stenosis, status post stenting of the innominate artery * Hypertension * Diabetes * Seizure disorder, in remission * Obesity * Coronary artery disease * Pleural effusion * Ex tobacco use Plan: * Patient continues to be completely aphasic, right hemiparetic. * MRI of the brain revealed multiple bilateral multifocal acute/subacute infarcts. It involves bilateral anterior and posterior circulation, consistent with cardioembolic strokes. * EEG was also performed, which did not reveal any epileptiform activity, only background slowing of moderate to severe degree. * Patient has received Plavix 600 mg loading dose on 12/16/2024. Continue Plavix 75 mg and aspirin as recommended by stroke neurologist . * CTA of head and neck revealed calcified and noncalcified plaque in the origin of the left subclavian artery with occlusion. Correlate for subclavian steal phenomenon. No evidence of dissection of the cervical internal carotid arteries or vertebral arteries. Calcified plaque at the carotid bifurcation with up to 50% stenosis bilaterally. * Await 2D echo with bubble study, rule out PFO. * Await fasting a.m. lipid panel, hemoglobin A1c * Telemetry monitoring * DVT prophylaxis: Lovenox 40 mg subcu daily * Prognosis appears very guarded to poor.
[2024-12-18 11:19] LABS: Glucose,Whole Blood 126 mg/dL (70-110)
--- NOTE | 2024-12-18 11:38 | CA ---
Transthoracic Echo Report Name: Jazzmine Rodarte Age: 84 Gender: F : 1940 Exam Date: 12/18/2024 08:07 Exam Location: [facility] Ht (in): 59 Wt (lb): 185 Ordering Physician: Tony Vora MD Attending/Referring Phys: Power Plant Assistant Munira Monk RDCS Procedure CPT: Indications: acute stroke Cardiac Hx: Technical Quality: Fair Contrast 1: Agitated Saline Total Dose (mL): 7 Contrast 2: Total Dose (mL): MEASUREMENTS (Male / Female) Normal Values 2D ECHO LV Diastolic Diameter PLAX 4.2 cm 4.2 - 5.9 / 3.9 - 5.3 cm LV Systolic Diameter PLAX 3.1 cm IVS Diastolic Thickness 1.4 cm 0.6 - 1.0 / 0.6 - 0.9 cm LVPW Diastolic Thickness 1.4 cm 0.6 - 1.0 / 0.6 - 0.9 cm LV Relative Wall Thickness 0.6 RV Internal Dim ED PLAX 2.9 cm LVOT Diameter 1.7 cm LA Systolic Diameter LX 3.9 cm 3.0 - 4.0 / 2.7 - 3.8 cm LV Diastolic Volume MOD BP 86.2 cm??? 67 - 155 / 56 - 104 cm??? LV Systolic Volume MOD BP 29.1 cm??? 22 - 58 / 19 - 49 cm??? LV Ejection Fraction MOD BP 66.2 % >= 55 % LV Cardiac Index MOD BP 2504.2 cm???/min???m??? LV Diastolic Volume MOD 4C 76.2 cm??? LV Systolic Volume MOD 4C 25.4 cm??? LV Ejection Fraction MOD 4C 66.6 % LV Cardiac Index MOD 4C 2228.0 cm???/min???m??? LV Diastolic Length 4C 7.0 cm LV Systolic Length 4C 6.5 cm LV Diastolic Volume MOD 2C 86.6 cm??? LV Systolic Volume MOD 2C 30.5 cm??? LV Ejection Fraction MOD 2C 64.8 % LV Cardiac Index MOD 2C 2462.3 cm???/min???m??? LV Diastolic Length 2C 7.9 cm LV Systolic Length 2C 7.3 cm LA Volume 47.5 cm??? 18 - 58 / 22 - 52 cm??? LA Volume Index 24.8 cm???/m??? 16 - 28 cm???/m??? M-MODE Aortic Root Diameter MM 2.8 cm AV Cusp Separation MM 1.9 cm DOPPLER AV Peak Velocity 156.4 cm/s AV Peak Gradient 9.8 mmHg LVOT Peak Velocity 103.9 cm/s LVOT Peak Gradient 4.3 mmHg AV Area Cont Eq pk 1.5 cm??? MV Area PHT 3.4 cm??? Mitral E Point Velocity 111.2 cm/s Mitral A Point Velocity 112.4 cm/s Mitral E to A Ratio 1.0 MV Deceleration Time 223.2 ms TR Peak Velocity 325.4 cm/s TR Peak Gradient 42.4 mmHg Right Ventricular Systolic Press 46.1 mmHg FINDINGS Left Ventricle Left ventricular ejection fraction is estimated at 55-60 %. Left ventricular cavity size normal. Moderately increased septal wall thickness. Moderately increased posterior wall thickness. No obvious regional wall motion abnormalities. Right Ventricle Normal right ventricular size and function. Moderate pulmonary hypertension. Right ventricular systolic pressure estimated at 46 mm hg. Right Atrium Normal right atrial size. No right atrial thrombus or mass seen. Attempted agitated saline bubble study for right to left shunt. Left Atrium Mildly increased left atrial area. No left atrial thrombus or mass present. Mitral Valve Mitral valve thickened. Mild mitral annular calcification. Trace to mild mitral regurgitation. No mitral stenosis. No evidence for mitral valve prolapse. Aortic Valve Trileaflet aortic valve. Thickened aortic valve without stenosis. No aortic regurgitation. Tricuspid Valve Structurally normal tricuspid valve. Mild tricuspid regurgitation. Pulmonic Valve Pulmonic valve not well visualized. Trace pulmonic regurgitation. Pericardium No pericardial effusion. No pleural effusion. Echo free space anterior to the right ventricle likely represents a fat pad. Aorta Normal size aortic root and proximal ascending aorta. CONCLUSIONS Reason: Acute stroke LVH with preserved systolic function Moderate pulmonary hypertension Suboptimal attempt at bubble study. If a bubble study is clinically relevant in this 84-year-old patient then it should be repeated since the four-chamber view images are quite adequate. Previewed by: Dr. Noel Ch MD (Electronically Signed) Final Date: 18 December 2024 11:37
--- NOTE | 2024-12-18 12:24 | P.PN ---
Subjective Progress Note Date: 12/18/24 Patient is a 84-year-old female transferred from [facility] yesterday. Documented past medical history including hypertension, hyperlipidemia, diabetes mellitus, CVA/TIA, seizure disorder, CKD, chronic anemia. Reportedly, concerns of peripheral hypotension despite central hypertension. Imaging done at the outside facility including a chest CT angiogram concerning for bilateral subclavian stenosis and possible additional subclavian steal syndrome. Poor opacification thought to be related to the severe stenosis. A femoral arterial line catheter was placed identifying severe hypertension, reportedly as high as 270/100 mmHg. Previously, placed on IV nitroglycerin at outside facility, and now on oral antihypertensives.. Of note, patient previously underwent left and right-sided heart catheterization on 12/09/2024 identifying coronary artery disease with mid LAD 60 to 70% stenosis, mid distal RCA 50 to 60% stenosis. High left-sided filling pressures. Additionally, major discrepancy noted in systemic blood pressure reading and blood pressure cuff which was identified at 70/40's mmHg. Her central aortic pressure was in the order of 220-240 over 80 mmHg. Labs including a CBC with a WBC count of 19.4, hemoglobin 8.9, platelets 393. BMP with sodium 127, potassium 4.5, chloride 101, serum bicarb 19, BUN 17, creatinine 0.96, glucose 175. Urinalysis positive for pyuria and bacteriuria. Empirically placed on Rocephin previously. Normal saline infusing at 75 mL/h. Patient being seen in the intensive care unit. She does not have any specific complaints. She is resting comfortably on room air. SpO2 reading 93% on bedside monitor. Heart rhythm appears normal sinus with frequent PACs. Blood pressure is now normotensive, currently reading 115/72 mmHg via a right femoral arterial line. Nitroglycerin has previously been stopped. She is on a combination of oral antihypertensives including Norvasc, losartan, Aldactone. She does report occasional bilateral arm and hand numbness and tingling with activity. Admits to frontal headache, almost 1 week. Currently resolved. Also, reports blurred vision over the last couple months. Denies hearing loss, tinnitus, dizziness, syncope. Denies any chest pain, heart palpitations, lower extremity edema, shortness of breath. She has remained hemodynamically stable, awaiting cardiovascular recommendations. The patient is seen today December 17, 2024 in follow-up in the intensive care unit. 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 She did undergo stenting of the ostium of the innominate artery. During the procedure she developed for strokelike symptoms and a code stroke was called. CT scan of the brain revealed no areas of acute brothers-white matter loss or differentiation identified. 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 Remote left frontal lobe injury with encephalomalacia. CT angiogram revealed calcified and noncalcified plaque at the origin and near the origin of the left subclavian artery with occlusion. Correlate for subclavian steal phenomenon. No evidence of dissection of the cervical internal carotid arteries or vertebral arteries. Calcified plaque in the carotid bifurcations up to 50% stenosis bilaterally. No evidence of intracranial high-grade stenosis or intracranial aneurysm. Today the patient remains aphasic. Not able to follow any commands. She is maintaining O2 saturations in the 90s on 2 L/min per nasal cannula. She has normal saline at KVO. White count 20.5. Hemoglobin 7.7. Platelets 411. Sodium 132. Potassium 4.3. Bicarb 21. BUN 17. Creatinine 0.99. Glucose 127. She remains on aspirin and Plavix. Chest x-ray reveals NG tube in appropriate position. Stable right IJ central venous catheter in place. Cardiomegaly with minimal pulmonary vascular congestion. The patient is seen today December 18, 2024 in follow-up in the intensive care unit. She is awake, resting in bed, remains about the same today as compared to yesterday. Mainly opening her eyes spontaneously. Not following any commands. Nonverbal. MRI of the brain revealed multiple bilateral multifocal acute/suba cute infarcts. Echocardiogram revealed preserved left ventricular systolic function. Moderate pulmonary hypertension. It was a suboptimal bubble study to rule out PFO. EEG revealed moderate to severe background slowing suggestive of generalized cerebral dysfunction seen in toxic metabolic encephalopathy or diffuse structural brain abnormality. No epileptiform activity was seen. She remains on Plavix and aspirin. She is continued on ceftriaxone. Lovenox for DVT prophylaxis. Objective - Vital Signs Vital signs: Vital Signs Temp 98.7 F 12/18/24 08:00 Pulse 59 L 12/18/24 08:00 Resp 17 12/18/24 08:00 BP 99/62 12/17/24 18:00 Pulse Ox 99 12/18/24 09:09 FiO2 Intake & Output 12/17/24 12/18/24 12/18/24 18:59 06:59 18:59 Intake Total 199 158 53 Output Total 455 470 110 Balance -256 -312 -57 Weight 84.1 kg Intake: IV 149 158 53 0.9 kvo 20 Sodium Chloride 0.9% 1, 50 50 000 ml @ 75 mls/hr IV . [id number] Rx#:[id number] pressure bags 99 108 33 Intake, IV Titration 50 Amount cefTRIAXone 1 gm In 50 Sodium Chloride 0.9% 50 ml @ 100 mls/hr IVPB Q24HR [facility] Rx#:[id number] Output: Urine 455 470 110 Other: Voiding Method Indwelling Catheter Indwelling Catheter ABP, PAP, CO, CI - Last Documented Arterial Blood Pressure 168/37 - Exam GENERAL EXAM: Opens eyes spontaneously, nonverbal, not following commands 84-year-old female, on 2 L nasal cannula, comfortable in no apparent distress. HEAD: Normocephalic. EYES: Normal reaction of pupils, equal size. NOSE: Clear with pink turbinates. Nasogastric tube secured in place. THROAT: No erythema or exudates. NECK: No masses, no JVD. CHEST: No chest wall deformity. Right subclavian triple-lumen catheter secured in place. LUNGS: Equal air entry with no crackles, wheeze, rhonchi or dullness. CVS: S1 and S2 normal with no audible murmur, regular rhythm. ABDOMEN: No hepatosplenomegaly, normal bowel sounds, no guarding or rigidity. SPINE: No scoliosis or deformity SKIN: No rashes CENTRAL NERVOUS SYSTEM: Severely aphasic, right hemiparetic, tone is normal in all 4 extremities. EXTREMITIES: There is no peripheral edema. No clubbing, no cyanosis. Peripheral pulses are intact. - Labs CBC & Chem 7: 12/18/24 03:37 12/18/24 03:37 Labs: Abnormal Lab Results - Last 24 Hours (Table) 12/17/24 12/17/24 12/17/24 Range/Units 13:12 18:30 20:23 WBC (4.50-10.00) 10*3/uL RBC (4.10-5.20) 10*6/uL Hgb (12.0-15.0) g/dL Hct (37.2-46.3) % Sodium (137-145) mmol/L Creatinine (0.52-1.04) mg/dL Glucose (74-99) mg/dL POC Glucose (mg/dL) 149 H 147 H 150 H (70-110) mg/dL 12/18/24 12/18/24 12/18/24 Range/Units 03:37 03:37 06:03 WBC 15.66 H (4.50-10.00) 10*3/uL RBC 2.45 L (4.10-5.20) 10*6/uL Hgb 7.1 L (12.0-15.0) g/dL Hct 22.0 L (37.2-46.3) % Sodium 134 L (137-145) mmol/L Creatinine 1.10 H (0.52-1.04) mg/dL Glucose 109 H (74-99) mg/dL POC Glucose (mg/dL) 140 H (70-110) mg/dL 12/18/24 Range/Units 11:17 WBC (4.50-10.00) 10*3/uL RBC (4.10-5.20) 10*6/uL Hgb (12.0-15.0) g/dL Hct (37.2-46.3) % Sodium (137-145) mmol/L Creatinine (0.52-1.04) mg/dL Glucose (74-99) mg/dL POC Glucose (mg/dL) 126 H (70-110) mg/dL Assessment and Plan Assessment: Transferred from outside facility with concerns of bilateral subclavian artery stenosis. 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 She did undergo stenting of the ostium of the innominate artery. During the procedure she developed for stroke-like symptoms and a code stroke was called Acute CVA with aphasia and inability to follow commands. CT scan of the brain revealed no areas of acute brothers-white matter loss or differentiation identified. There were 2 areas in the cerebellum and 1 in the right frontal lobe cortex of high density suggesting mineralization in the setting of pseudo laminar necrosi s. Remote left frontal lobe injury with encephalomalacia. CT angiogram revealed calcified and noncalcified plaque at the origin and near the origin of the left subclavian artery with occlusion. Correlate for subclavian steal phenomenon. No evidence of dissection of the cervical internal carotid arteries or vertebral arteries. Calcified plaque in the carotid bifurcations up to 50% stenosis bilaterally. No evidence of intracranial high-grade stenosis or intracranial aneurysm. MRI of the brain reveals multiple bilateral multifocal acute/subacute infarcts. EEG reveals moderate to severe background slowing suggestive of generalized cerebral dysfunction which can be seen in toxic metabolic encephalopathy or related to diffuse structural brain abnormality. Hypertensive urgency, previously on nitroglycerin infusion at outside facility, now started on p.o. antihypertensives Recent right and left heart catheterization on 12/09/2024 identifying coronary artery disease including mid LAD 60 to 70% stenosis, mid distal RCA 50 to 60% stenosis. High left-sided filling pressures. Additionally, major discrepancy noted in systemic blood pressure reading and blood pressure cuff which was reported at 70/40's mmHg. Her central aortic pressure was in the order of 220- 240 over 80 mmHg per the labor relations consultant report. Acute leukocytosis Anemia, normocytic and normochromic Hyponatremia, appears euvolemic Nonobstructive coronary artery disease, as reported during heart catheterization History of hyperlipidemia Diabetes mellitus History of CVA/TIA. History of asthma, not in exacerbation Plan: The patient was seen and evaluated Chest x-ray, labs and medications reviewed MRI of the brain reviewed EEG reviewed Remains on aspirin and Plavix Remains on statins Remains aphasic Unable to follow commands On oxygen at 2 L/min per nasal cannula Hospice consult placed per family request We will continue to follow I have personally seen and examined the patient, performed the documentation and the assessment and plan as written. Number of minutes spent on the visit: 10 Dictation was produced using [email or web address] software. Please excuse any grammatical, word or spelling errors.
[2024-12-18 15:25] LABS: Cholesterol 120.00 mg/dL (0.00-200.00); HDL Cholesterol 59.80 mg/dL (40.00-60.00); LDL Cholesterol,Calculated 40.3 mg/dL (0.0-131.0); Triglycerides 99.70 mg/dL (0.00-149.00); VLDL Calculation 19.94 mg/dL (5.00-40.00)
--- NOTE | 2024-12-18 16:43 | P.PN ---
Subjective Progress Note Date: 12/18/24 Dr. Sheldon's addendum Patient was seen and examined with the resident. I agree with assessment and plan documented below Patient is still in the ICU, minimally improvement in neurological status. Brain MRI confirms multiple foci CVA suggestive of of embolic phenomena I discussed the case with the patient's daughter present at the bedside. Explained the procedural steps, potential complication. They understands and are reasonable. Prognosis overall guarded. We optimize some antihypertensives to improve the central hypertension Patient is a 84-year-old female with history of hypertension, hyperlipidemia, diabetes mellitus, CKD, chronic anemia, CVA/TIA and seizure disorder is a transfer from [facility] yesterday on 12/15/2024. As per the documentation, patient was sent to the [facility] emergency with concerns for hypotension when she was at pulmonology Dr. Cox's office. At [facility], patient had a chest CT angiogram which was concerning for bilateral subclavian stenosis and possible additional subclavian steal syndrome. Patient had a placement of femoral arterial line catheter at the outside facility with a blood pressure of as high as 270/100 mmHg. Patient was treated with IV nitroglycerin and currently is on antihypertensive medication. She is Dr. Rivera's patient. Patient underwent left and right heart catheterization due to abnormal stress test and pulmonary hypertension on 12/09/2024 identifying coronary artery disease including mid LAD 60 to 70% stenosis and mid to distal RCA 50 to 60% stenosis. Elevated left-sided filling pressures. Abnormal RFR of LAD. Patient is currently in the ICU. Patient denies any chest pain, shortness of br eath, lightheadedness lower extremity edema. Patient is currently on oral antihypertensive medications including amlodipine, losartan and Aldactone. 12/17/2024: Patient seen and examined at the bedside. 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 During the procedure, patient developed strokelike symptoms and code stroke was called. Initial CT brain did not show any sign of acute stroke. Repeat brain CT today does show new loss of brothers-white matter differentiation within the right parietal lobe and possible right occipital lobe suggestive of ischemia. MRI of the brain is pending. Patient has been experiencing left upper and lower extremity paresthesia with left facial droop. She is currently aphasic. 12/18/2024: Patient seen and examined at the bedside. Patient continues to be severely aphasic with right upper and lower extremity hemiparesis. Brain MRI revealed multiple bilateral acute/subacute infarcts. WBC 15.6, hemoglobin 7.1, sodium 134, BUN 16, creatinine 1.0 Daughter was present at the bedside. Discussed option of palliative care for the patient. Review of systems: Pertinent positives and negatives as discussed in HPI, a complete review of systems was performed and all other systems are negative. Social history: Tobacco: Former smoker Physical examination: Vital signs reviewed General: non toxic, no distress, appears at stated age, morbidly obese Neck: No cervical lymphadenopathy, trachea midline, supple, no JVP Mouth: Right facial droop noted Cardiovascular: S1S2 reg, no murmur, positive dorsalis pedis pulse bilateral, no edema Lungs: Diffuse inspiratory and expiratory wheezes noted. No rales or crackles noted. No use of accessory respiratory muscle. 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 once daily Continue hydralazine 50 mg every 6 hours as needed for SBP more than 180 Chlorothiazide 25 mg p.o. once daily Patient is currently hemodynamically stable and in ICU Continue to monitor vital signs Palliative care discussed with patient's daughter Stroke management per neurology Abx per primary team ICU management per oracle sql developer Objective - Vital Signs Vital signs: Vital Signs Temp 98.7 F 12/18/24 08:00 Pulse 87 12/18/24 14:00 Resp 22 12/18/24 14:00 BP 99/62 12/17/24 18:00 Pulse Ox 99 12/18/24 14:00 FiO2 Intake & Output 12/17/24 12/18/24 12/18/24 18:59 06:59 18:59 Intake Total 199 158 169 Output Total 455 470 235 Balance -256 -312 -66 Weight 84.1 kg 84.1 kg Intake: IV 149 158 169 0.9 kvo 50 Sodium Chloride 0.9% 1, 50 50 000 ml @ 75 mls/hr IV . [id number] [facility] Rx#:[id number] cefTRIAXone 1 gm In 50 Sodium Chloride 0.9% 50 ml @ 100 mls/hr IVPB Q24HR [facility] Rx#:[id number] pressure bags 99 108 69 Intake, IV Titration 50 Amount cefTRIAXone 1 gm In 50 Sodium Chloride 0.9% 50 ml @ 100 mls/hr IVPB Q24HR [facility] Rx#:[id number] Output: Urine 455 470 235 Other: Voiding Method Indwelling Catheter Indwelling Catheter Indwelling Catheter ABP, PAP, CO, CI - Last Documented Arterial Blood Pressure 192/39 - Labs CBC & Chem 7: 12/19/24 06:00 12/19/24 06:00 Labs: Abnormal Lab Results - Last 24 Hours (Table) 12/17/24 12/17/24 12/18/24 Range/Units 18:30 20:23 03:37 WBC 15.66 H (4.50-10.00) 10*3/uL RBC 2.45 L (4.10-5.20) 10*6/uL Hgb 7.1 L (12.0-15.0) g/dL Hct 22.0 L (37.2-46.3) % Sodium (137-145) mmol/L Creatinine (0.52-1.04) mg/dL Glucose (74-99) mg/dL POC Glucose (mg/dL) 147 H 150 H (70-110) mg/dL 12/18/24 12/18/24 12/18/24 Range/Units 03:37 06:03 11:17 WBC (4.50-10.00) 10*3/uL RBC (4.10-5.20) 10*6/uL Hgb (12.0-15.0) g/dL Hct (37.2-46.3) % Sodium 134 L (137-145) mmol/L Creatinine 1.10 H (0.52-1.04) mg/dL Glucose 109 H (74-99) mg/dL POC Glucose (mg/dL) 140 H 126 H (70-110) mg/dL
[2024-12-18 18:03] LABS: Glucose,Whole Blood 113 mg/dL (70-110)
[2024-12-18 20:24] LABS: Glucose,Whole Blood 128 mg/dL (70-110)
[2024-12-18 23:18] LABS: Glucose,Whole Blood 133 mg/dL (70-110)
--- NOTE | 2024-12-19 04:15 | PN ---
PROGRESS NOTE DATE OF SERVICE: 12/17/2024 SUBJECTIVE: She is status post vertebroplasty, vertebral artery angioplasty for which she had a stroke postop. She moves the 4 extremities, but she is not talking or waking up. She still remains on 2-3 L oxygen in the ICU. CAT scan of the head shows multiple possible embolic CVAs. Workup in progress. OBJECTIVE: VITAL SIGNS: Blood pressure is 180s to 200s/30s to 50s. Saturating 99% on 2 L, pulse 60s-70s. CARDIOVASCULAR: S1, S2. LUNGS: Scattered wheeze HEMATOLOGY: Negative Homans. LABORATORY DATA: White count 15.66, hemoglobin 7.1. ASSESSMENT AND PLAN: CVA, status post vertebral artery angioplasty, prior treated for pneumonia and possible sepsis. Prognosis is guarded. Hypertension acceleration. Cardiology, Pulmonary and Neurology consults. Further workup in progress. Prognosis guarded. MMODL / IJN: [id number] /
[2024-12-19 04:48] LABS: Basophils # (A) 0.07 10*3/uL (0.00-0.10); Basophils % (A) 0.4 %; Eosinophils # (A) 0.38 10*3/uL (0.04-0.35); Eosinophils % (A) 2.3 %; HCT 20.0 % (37.2-46.3); Lymphocytes # (A) 0.64 10*3/uL (0.90-5.00); Lymphocytes % (A) 3.9 %; MCH 28.5 pg (27.0-32.0); MCHC 31.5 g/dL (32.0-37.0); MCV 90.5 fL (80.0-97.0); Monocytes # (A) 0.84 10*3/uL (0.20-1.00); Monocytes % (A) 5.1 %; Neutrophils # (A) 14.26 10*3/uL (1.80-7.70); Neutrophils % (A) 87.3 %; Platelet Count 325 10*3/uL (140-440); RBC 2.21 10*6/uL (4.10-5.20); RDW 16.1 % (11.5-14.5); WBC 16.35 10*3/uL (4.50-10.00)
[2024-12-19 05:03] LABS: HGB 6.3 g/dL (12.0-15.0)
[2024-12-19 05:19] LABS: African American GFR (CKD) 56 (>60 ml/min/1.73 sqM); Anion Gap 5 mmol/L; Blood Urea Nitrogen 16 mg/dL (7-17); Calcium 8.5 mg/dL (8.4-10.2); Carbon Dioxide 21 mmol/L (22-30); Chloride 108 mmol/L (98-107); Glucose 130 mg/dL (74-99); Non-African American GFR(CKD) 49 (>60 ml/min/1.73 sqM); Potassium 3.6 mmol/L (3.5-5.1); Sodium 134 mmol/L (137-145)
[2024-12-19 05:21] LABS: Glucose,Whole Blood 169 mg/dL (70-110)
[2024-12-19] MEDS ORDERED: INSULIN LISPRO (HumaLOG) 100 UNIT/ML 10 mL VL SQ SCH (06:00)
[2024-12-19] MEDS: POTASSIUM BICARBONATE/CIT AC 20 MEQ TABLET.EFF NG-TUBE SCH ×2 (06:30→19:05)
[2024-12-19] MEDS: INSULIN LISPRO (HumaLOG) 100 UNIT/ML 10 mL VL SQ SCH (06:30)
--- NOTE | 2024-12-19 10:34 | P.PN ---
Subjective Progress Note Date: 12/19/24 Patient is a 84-year-old female transferred from [facility] yesterday. Documented past medical history including hypertension, hyperlipidemia, diabetes mellitus, CVA/TIA, seizure disorder, CKD, chronic anemia. Reportedly, concerns of peripheral hypotension despite central hypertension. Imaging done at the outside facility including a chest CT angiogram concerning for bilateral subclavian stenosis and possible additional subclavian steal syndrome. Poor opacification thought to be related to the severe stenosis. A femoral arterial line catheter was placed identifying severe hypertension, reportedly as high as 270/100 mmHg. Previously, placed on IV nitroglycerin at outside facility, and now on oral antihypertensives.. Of note, patient previously underwent left and right-sided heart catheterization on 12/09/2024 identifying coronary artery disease with mid LAD 60 to 70% stenosis, mid distal RCA 50 to 60% stenosis. High left-sided filling pressures. Additionally, major discrepancy noted in systemic blood pressure reading and blood pressure cuff which was identified at 70/40's mmHg. Her central aortic pressure was in the order of 220-240 over 80 mmHg. Labs including a CBC with a WBC count of 19.4, hemoglobin 8.9, platelets 393. BMP with sodium 127, potassium 4.5, chloride 101, serum bicarb 19, BUN 17, creatinine 0.96, glucose 175. Urinalysis positive for pyuria and bacteriuria. Empirically placed on Rocephin previously. Normal saline infusing at 75 mL/h. Patient being seen in the intensive care unit. She does not have any specific complaints. She is resting comfortably on room air. SpO2 reading 93% on bedside monitor. Heart rhythm appears normal sinus with frequent PACs. Blood pressure is now normotensive, currently reading 115/72 mmHg via a right femoral arterial line. Nitroglycerin has previously been stopped. She is on a combination of oral antihypertensives including Norvasc, losartan, Aldactone. She does report occasional bilateral arm and hand numbness and tingling with activity. Admits to frontal headache, almost 1 week. Currently resolved. Also, reports blurred vision over the last couple months. Denies hearing loss, tinnitus, dizziness, syncope. Denies any chest pain, heart palpitations, lower extremity edema, shortness of breath. She has remained hemodynamically stable, awaiting cardiovascular recommendations. The patient is seen today December 17, 2024 in follow-up in the intensive care unit. 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 She did undergo stenting of the ostium of the innominate artery. During the procedure she developed for strokelike symptoms and a code stroke was called. CT scan of the brain revealed no areas of acute brothers-white matter loss or differentiation identified. 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 Remote left frontal lobe injury with encephalomalacia. CT angiogram revealed calcified and noncalcified plaque at the origin and near the origin of the left subclavian artery with occlusion. Correlate for subclavian steal phenomenon. No evidence of dissection of the cervical internal carotid arteries or vertebral arteries. Calcified plaque in the carotid bifurcations up to 50% stenosis bilaterally. No evidence of intracranial high-grade stenosis or intracranial aneurysm. Today the patient remains aphasic. Not able to follow any commands. She is maintaining O2 saturations in the 90s on 2 L/min per nasal cannula. She has normal saline at KVO. White count 20.5. Hemoglobin 7.7. Platelets 411. Sodium 132. Potassium 4.3. Bicarb 21. BUN 17. Creatinine 0.99. Glucose 127. She remains on aspirin and Plavix. Chest x-ray reveals NG tube in appropriate position. Stable right IJ central venous catheter in place. Cardiomegaly with minimal pulmonary vascular congestion. The patient is seen today December 18, 2024 in follow-up in the intensive care unit. She is awake, resting in bed, remains about the same today as compared to yesterday. Mainly opening her eyes spontaneously. Not following any commands. Nonverbal. MRI of the brain revealed multiple bilateral multifocal acute/suba cute infarcts. Echocardiogram revealed preserved left ventricular systolic function. Moderate pulmonary hypertension. It was a suboptimal bubble study to rule out PFO. EEG revealed moderate to severe background slowing suggestive of generalized cerebral dysfunction seen in toxic metabolic encephalopathy or diffuse structural brain abnormality. No epileptiform activity was seen. She remains on Plavix and aspirin. She is continued on ceftriaxone. Lovenox for DVT prophylaxis. The patient is seen today December 19, 2024 in follow-up in the intensive care unit. She remains nonverbal. Opens eyes spontaneously. Maintaining O2 saturations in the 90s on room air oxygen. Nasogastric tube remains in place. She has been nourished with vital AF at 30 mL/h with a goal of 38 mL/h. Normal saline at 75 mL/h. Hemoglobin 6.3 this morning and she is currently receiving 1 unit of packed red blood cells. She remains on ceftriaxone. Lovenox for DVT prophylaxis. Urine culture revealed no growth. White count 16.3. Platelets 325. Sodium 134. Potassium 3.6. Bicarb 21. BUN 16. Creatinine 1.07. Glucose 130. Objective - Vital Signs Vital signs: Vital Signs Temp 98.0 F 12/19/24 10:00 Pulse 82 12/19/24 10:09 Resp 15 12/19/24 10:09 BP 189/40 12/19/24 10:09 Pulse Ox 94 L 12/19/24 10:09 FiO2 Intake & Output 12/18/24 12/19/24 12/19/24 18:59 06:59 18:59 Intake Total 331 534 685 Output Total 935 675 130 Balance -604 -141 555 Weight 84.1 kg 83.6 kg Intake: IV 301 264 288 0.9 kvo 110 120 40 Lactated Ringers 1,000 ml 150 @ 75 mls/hr IV .[id number] [facility] Rx#:[id number] cefTRIAXone 1 gm In 50 50 Sodium Chloride 0.9% 50 ml @ 100 mls/hr IVPB Q24HR [facility] Rx#:[id number] pressure bags 141 144 48 Tube Feeding 30 180 110 Blood Product 0 287 Rc Pheresis As-3 Unit 0 287 [id number] Other 90 Output: Urine 935 675 130 Other: Voiding Method Indwelling Catheter Indwelling Catheter ABP, PAP, CO, CI - Last Documented Arterial Blood Pressure 204/44 - Exam GENERAL EXAM: Opens eyes spontaneously, nonverbal, not following commands, 84-year-old female, on room air oxygen, in no apparent distress. HEAD: Normocephalic. EYES: Normal reaction of pupils, equal size. NOSE: Clear with pink turbinates. Nasogastric tube secured in place. THROAT: No erythema or exudates. NECK: No masses, no JVD. CHEST: No chest wall deformity. Right subclavian triple-lumen catheter secured in place. LUNGS: Equal air entry with no crackles, wheeze, rhonchi or dullness. CVS: S1 and S2 normal with no audible murmur, regular rhythm. ABDOMEN: No hepatosplenomegaly, normal bowel sounds, no guarding or rigidity. SPINE: No scoliosis or deformity SKIN: No rashes CENTRAL NERVOUS SYSTEM: Severely aphasic, right hemiparetic, tone is normal in all 4 extremities. EXTREMITIES: There is no peripheral edema. No clubbing, no cyanosis. Peripheral pulses are intact. - Labs CBC & Chem 7: 12/19/24 06:00 12/19/24 06:00 Labs: Abnormal Lab Results - Last 24 Hours (Table) 12/18/24 12/18/24 12/18/24 Range/Units 11:17 18:02 20:24 WBC (4.50-10.00) 10*3/uL RBC (4.10-5.20) 10*6/uL Hgb (12.0-15.0) g/dL Hct (37.2-46.3) % MCHC (32.0-37.0) g/dL Immature Gran # (0.00-0.04) 10*3/uL Neutrophils # (1.80-7.70) 10*3/uL Lymphocytes # (0.90-5.00) 10*3/uL Eosinophils # (0.04-0.35) 10*3/uL Sodium (137-145) mmol/L Chloride (98-107) mmol/L Carbon Dioxide (22-30) mmol/L Creatinine (0.52-1.04) mg/dL Glucose (74-99) mg/dL POC Glucose (mg/dL) 126 H 113 H 128 H (70-110) mg/dL Crossmatch 12/18/24 12/19/24 12/19/24 Range/Units 23:16 05:19 05:23 WBC (4.50-10.00) 10*3/uL RBC (4.10-5.20) 10*6/uL Hgb (12.0-15.0) g/dL Hct (37.2-46.3) % MCHC (32.0-37.0) g/dL Immature Gran # (0.00-0.04) 10*3/uL Neutrophils # (1.80-7.70) 10*3/uL Lymphocytes # (0.90-5.00) 10*3/uL Eosinophils # (0.04-0.35) 10*3/uL Sodium (137-145) mmol/L Chloride (98-107) mmol/L Carbon Dioxide (22-30) mmol/L Creatinine (0.52-1.04) mg/dL Glucose (74-99) mg/dL POC Glucose (mg/dL) 133 H 169 H (70-110) mg/dL Crossmatch See Detail 12/19/24 12/19/24 Range/Units 06:00 06:00 WBC 16.35 H (4.50-10.00) 10*3/uL RBC 2.21 L (4.10-5.20) 10*6/uL Hgb 6.3 L* (12.0-15.0) g/dL Hct 20.0 L (37.2-46.3) % MCHC 31.5 L (32.0-37.0) g/dL Immature Gran # 0.16 H (0.00-0.04) 10*3/uL Neutrophils # 14.26 H (1.80-7.70) 10*3/uL Lymphocytes # 0.64 L (0.90-5.00) 10*3/uL Eosinophils # 0.38 H (0.04-0.35) 10*3/uL Sodium 134 L (137-145) mmol/L Chloride 108 H (98-107) mmol/L Carbon Dioxide 21 L (22-30) mmol/L Creatinine 1.07 H (0.52-1.04) mg/dL Glucose 130 H (74-99) mg/dL POC Glucose (mg/dL) (70-110) mg/dL Crossmatch Assessment and Plan Assessment: Transferred from outside facility with concerns of bilateral subclavian artery stenosis. 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 She did undergo stenting of the ostium of the innominate artery. During the procedure she developed for stroke-like symptoms and a code stroke was called Acute CVA with aphasia and inability to follow commands. CT scan of the brain revealed no areas of acute brothers-white matter loss or differentiation identified. 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 Remote left frontal lobe injury with encephalomalacia. CT angiogram revealed calcified and noncalcified plaque at the origin and near the origin of the left subclavian artery with occlusion. Correlate for subclavian steal phenomenon. No evidence of dissection of the cervical internal carotid arteries or vertebral arteries. Calcified plaque in the carotid bifurcations up to 50% stenosis bilaterally. No evidence of intracranial high-grade stenosis or intracranial aneurysm. MRI of the brain reveals multiple bilateral multifocal acute/subacute infarcts. EEG reveals moderate to severe background slowing suggestive of generalized cerebral dysfunction which can be seen in toxic metabolic encephalopathy or related to diffuse structural brain abnormality. Hypertensive urgency, previously on nitroglycerin infusion at outside facility, now started on p.o. antihypertensives Recent right and left heart catheterization on 12/09/2024 identifying coronary artery disease including mid LAD 60 to 70% stenosis, mid distal RCA 50 to 60% stenosis. High left-sided filling pressures. Additionally, major discrepancy noted in systemic blood pressure reading and blood pressure cuff which was reported at 70/40's mmHg. Her central aortic pressure was in the order of 220- 240 over 80 mmHg per the ship laborer report. Acute leukocytosis Anemia, normocytic and normochromic. Hemoglobin 6.3 receiving 1 unit of packed red blood cells Hyponatremia, appears euvolemic Nonobstructive coronary artery disease, as reported during heart catheterization History of hyperlipidemia Diabetes mellitus History of CVA/TIA. History of asthma, not in exacerbation Plan: The patient was seen and evaluated Labs and medications reviewed Receiving 1 unit of packed red blood cells Remains on aspirin and Plavix Remains on statins Remains aphasic Unable to follow commands Stable and on room air oxygen Nasogastric tube remains in place Being nourished with vital AF Hospice consult placed per family request I have personally seen and examined the patient, performed the documentation and the assessment and plan as written. Number of minutes spent on the visit: 10 Dictation was produced using [employer] dictation software. Please excuse any grammatical, word or spelling errors.
[2024-12-19 11:40] LABS: Glucose,Whole Blood 146 mg/dL (70-110)
--- NOTE | 2024-12-19 14:11 | P.PN ---
Subjective Progress Note Date: 12/19/24 Patient was seen for a follow-up. Patient continues to be mute, but her comprehension has remarkably improved. She is much better as compared to yesterday. Patient denies any headache, any pain anywhere by nodding "no". Objective - Vital Signs Vital signs: Vital Signs Temp 98.0 F 12/19/24 10:00 Pulse 82 12/19/24 10:09 Resp 15 12/19/24 10:09 BP 189/40 12/19/24 10:09 Pulse Ox 94 L 12/19/24 10:09 FiO2 Intake & Output 12/18/24 12/19/24 12/19/24 18:59 06:59 18:59 Intake Total 331 534 685 Output Total 935 675 130 Balance -604 -141 555 Weight 84.1 kg 83.6 kg Intake: IV 301 264 288 0.9 kvo 110 120 40 Lactated Ringers 1,000 ml 150 @ 75 mls/hr IV .[id number] [facility] Rx#:[id number] cefTRIAXone 1 gm In 50 50 Sodium Chloride 0.9% 50 ml @ 100 mls/hr IVPB Q24HR [facility] Rx#:[id number] pressure bags 141 144 48 Tube Feeding 30 180 110 Blood Product 0 287 Rc Pheresis As-3 Unit 0 287 [id number] Other 90 Output: Urine 935 675 130 Other: Voiding Method Indwelling Catheter Indwelling Catheter ABP, PAP, CO, CI - Last Documented Arterial Blood Pressure 204/44 - Exam Patient is quite alert and awake, interacting much better. She denies any headache or pain anywhere by nodding no. She has right facial asymmetry but better. Pupils are equal, round and reacting. Visual chávez were not checked today. On muscle strength testing, strength about 1 at the right acid washer operator, and some gross movement with slight against gravity in the right arm. In the left arm, acid washer operator is 4+, biceps 5-, triceps 4+, deltoid 3+. In the lower limbs the strength is symmetric, hip flexion is 3, ankle dorsiflexion 4-, plantarflexion 5. Patient has bilateral Babinski. - Labs CBC & Chem 7: 12/19/24 06:00 12/19/24 06:00 Labs: Abnormal Lab Results - Last 24 Hours (Table) 07/0912/18/24 12/18/24 Range/Units 18:02 20:24 23:16 WBC (4.50-10.00) 10*3/uL RBC (4.10-5.20) 10*6/uL Hgb (12.0-15.0) g/dL Hct (37.2-46.3) % MCHC (32.0-37.0) g/dL Immature Gran # (0.00-0.04) 10*3/uL Neutrophils # (1.80-7.70) 10*3/uL Lymphocytes # (0.90-5.00) 10*3/uL Eosinophils # (0.04-0.35) 10*3/uL Sodium (137-145) mmol/L Chloride (98-107) mmol/L Carbon Dioxide (22-30) mmol/L Creatinine (0.52-1.04) mg/dL Glucose (74-99) mg/dL POC Glucose (mg/dL) 113 H 128 H 133 H (70-110) mg/dL Crossmatch 12/19/24 12/19/24 12/19/24 Range/Units 05:19 05:23 06:00 WBC 16.35 H (4.50-10.00) 10*3/uL RBC 2.21 L (4.10-5.20) 10*6/uL Hgb 6.3 L* (12.0-15.0) g/dL Hct 20.0 L (37.2-46.3) % MCHC 31.5 L (32.0-37.0) g/dL Immature Gran # 0.16 H (0.00-0.04) 10*3/uL Neutrophils # 14.26 H (1.80-7.70) 10*3/uL Lymphocytes # 0.64 L (0.90-5.00) 10*3/uL Eosinophils # 0.38 H (0.04-0.35) 10*3/uL Sodium (137-145) mmol/L Chloride (98-107) mmol/L Carbon Dioxide (22-30) mmol/L Creatinine (0.52-1.04) mg/dL Glucose (74-99) mg/dL POC Glucose (mg/dL) 169 H (70-110) mg/dL Crossmatch See Detail 12/19/24 12/19/24 Range/Units 06:00 11:38 WBC (4.50-10.00) 10*3/uL RBC (4.10-5.20) 10*6/uL Hgb (12.0-15.0) g/dL Hct (37.2-46.3) % MCHC (32.0-37.0) g/dL Immature Gran # (0.00-0.04) 10*3/uL Neutrophils # (1.80-7.70) 10*3/uL Lymphocytes # (0.90-5.00) 10*3/uL Eosinophils # (0.04-0.35) 10*3/uL Sodium 134 L (137-145) mmol/L Chloride 108 H (98-107) mmol/L Carbon Dioxide 21 L (22-30) mmol/L Creatinine 1.07 H (0.52-1.04) mg/dL Glucose 130 H (74-99) mg/dL POC Glucose (mg/dL) 146 H (70-110) mg/dL Crossmatch Assessment and Plan Assessment: * Acute ischemic stroke, multifocal involving bilateral anterior and posterior circulations suggestive of cardioembolic stroke. It appears patient's menta tion was poor even prior to the procedure of stenting of the innominate artery. Patient's mentation and neurological examination has much improved as compared to yesterday. * Bilateral subclavian stenosis, status post stenting of the innominate artery * Hypertension * Diabetes * Seizure disorder, in remission * Obesity * Coronary artery disease * Pleural effusion * Ex tobacco use Plan: * Patient's mentation, comprehension has remarkably improved. Her muscle strength also seems to be improving particularly of the left arm and some movement of the right arm as well. Also having some purposeful movements of the legs. Family was considering hospice, but with remarkable improvement in the last 24 hours, we will continue current management. * MRI of the brain revealed multiple bilateral multifocal acute/subacute infarcts. It involves bilateral anterior and posterior circulation, consistent with cardioembolic strokes. * EEG was also performed, which did not reveal any epileptiform activity, only background slowing of moderate to severe degree. * Patient has received Plavix 600 mg loading dose on 12/16/2024. Continue Plavix 75 mg and aspirin as recommended by stroke neurologist Dr.Majjhoo. * CTA of head and neck revealed calcified and noncalcified plaque in the origin of the left subclavian artery with occlusion. Correlate for subclavian steal phenomenon. No evidence of dissection of the cervical internal carotid arteries or vertebral arteries. Calcified plaque at the carotid bifurcation with up to 50% stenosis bilaterally. * 2D echo revealed LVEF 55 to 60%. Normal left ventricular cavity size. Moderately increased septal wall thickness. Moderately increased posterior wall thickness. No obvious regional wall motion abnormalities. Normal right atrial size. Attempt with agitated saline bubble study for rvnld-co-ebbz shunt. But it was suboptimal study. Thickened aortic valve without stenosis. * Lipid panel with cholesterol 120, LDL 40, HDL 59, triglycerides 99. Continue Lipitor 80 mg daily. * Hemoglobin A1c 5.2. * Telemetry monitoring * DVT prophylaxis: Lovenox 40 mg subcu daily * Patient is showing clinical improvement. We will continue to monitor neurologically. Discussed with multiple family members and nursing staff in detail.
[2024-12-19] MEDS: IPRATROPIUM 0.5 MG/2.5 ML NEBU INHALATION SCH (16:21)
[2024-12-19 17:00] LABS: HCT 25.8 % (37.2-46.3); MCH 29.5 pg (27.0-32.0); MCHC 33.3 g/dL (32.0-37.0); MCV 88.4 fL (80.0-97.0); Platelet Count 367 10*3/uL (140-440); RBC 2.92 10*6/uL (4.10-5.20); RDW 15.6 % (11.5-14.5); WBC 23.04 10*3/uL (4.50-10.00)
[2024-12-19 17:03] LABS: HGB 8.6 g/dL (12.0-15.0)
--- NOTE | 2024-12-19 17:11 | P.PN ---
Subjective Progress Note Date: 12/19/24 Seen and examined with the resident at the bedside Agree with assessment and plan Multifocal CVA after right subclavian artery intervention Central hypertension Overall poor prognosis Patient is a 84-year-old female with history of hypertension, hyperlipidemia, diabetes mellitus, CKD, chronic anemia, CVA/TIA and seizure disorder is a transfer from [facility] yesterday on 12/15/2024. As per the documentation, patient was sent to the [facility] emergency with concerns for hypotension when she was at pulmonology Dr. Cox's office. At [facility], patient had a chest CT angiogram which was concerning for bilateral subclavian stenosis and possible additional subclavian steal syndrome. Patient had a placement of femoral arterial line catheter at the outside facility with a blood pressure of as high as 270/100 mmHg. Patient was treated with IV nitroglycerin and currently is on antihypertensive medication. She is Dr. Rivera's patient. Patient underwent left and right heart catheterization due to abnormal stress test and pulmonary hypertension on 12/09/2024 identifying coronary artery disease including mid LAD 60 to 70% stenosis and mid to distal RCA 50 to 60% stenosis. Elevated left-sided filling pressures. Abnormal RFR of LAD. Patient is currently in the ICU. Patient denies any chest pain, shortness of breath, lightheadedness lower extremity edema. Patient is currently on oral antihypertensive medications including amlodipine, losartan and Aldactone. 12/17/2024: Patient seen and examined at the bedside. 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 During the procedure, patient developed strokelike symptoms and code stroke was called. Initial CT brain did not show any sign of acute stroke. Repeat brain CT today does show new loss of brothers-white matter differentiation within the right parietal lobe and possible right occipital lobe suggestive of ischemia. MRI of the brain is pending. Patient has been experiencing left upper and lower extremity paresthesia with left facial droop. She is currently aphasic. 12/18/2024: Patient seen and examined at the bedside. Patient continues to be severely aphasic with right upper and lower extremity hemiparesis. Brain MRI revealed multiple bilateral acute/subacute infarcts. WBC 15.6, hemoglobin 7.1, sodium 134, BUN 16, creatinine 1.0 Daughter was present at the bedside. Discussed option of palliative care for the patient. 12/19/2024: Patient was seen and examined at the bedside. Patient neurologically remains the same. Patient continues to be aphasic and nonverbal with a right hemiparesis. Family is leaning towards hospice care for the patient. Apparently they have a meeting with social psychologist in the afternoon. WBC 16.3, hemoglobin 6.3, sodium 134, potassium 3.6, BUN 16, creatinine 1.07. Review of systems: Pertinent positives and negatives as discussed in HPI, a complete review of systems was performed and all other systems are negative. Social history: Tobacco: Former smoker Physical examination: Vital signs reviewed General: non toxic, no distress, appears at stated age, morbidly obese Neck: No cervical lymphadenopathy, trachea midline, supple, no JVP Mouth: Right facial droop noted Cardiovascular: S1S2 reg, no murmur, positive dorsalis pedis pulse bilateral, no edema Lungs: Diffuse inspiratory and expiratory wheezes noted. No rales or crackles noted. No use of accessory respiratory muscle. 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 once daily Increase hydralazine to 100 mg every 6 hours as needed for SBP more than 180 Chlorothiazide 25 mg p.o. once daily Patient is currently hemodynamically stable and in ICU Continue to monitor vital signs Family is considering hospice care for the patient Stroke management per neurology Abx per primary team ICU management per hand stapler Overall prognosis continues to be guarded Objective - Vital Signs Vital signs: Vital Signs Temp 98.0 F 12/19/24 13:00 Pulse 84 12/19/24 16:28 Resp 20 12/19/24 16:00 BP 189/40 12/19/24 10:09 Pulse Ox 92 L 12/19/24 16:00 FiO2 Intake & Output 12/18/24 12/19/24 12/19/24 18:59 06:59 18:59 Intake Total 353 761 5266 Output Total 935 875 370 Balance -604 -141 897 Weight 84.1 kg 83.6 kg Intake: IV 301 264 870 0.9 kvo 110 120 100 Lactated Ringers 1,000 ml 600 @ 75 mls/hr IV .[id number] [facility] Rx#:[id number] cefTRIAXone 1 gm In 50 50 Sodium Chloride 0.9% 50 ml @ 100 mls/hr IVPB Q24HR [facility] Rx#:[id number] pressure bags 141 144 120 Tube Feeding 30 180 110 Blood Product 0 287 Rc Pheresis As-3 Unit 0 287 [id number] Other 90 Output: Urine 937 526 815 Other: Voiding Method Indwelling Catheter Indwelling Catheter Indwelling Catheter ABP, PAP, CO, CI - Last Documented Arterial Blood Pressure 192/43 - Labs CBC & Chem 7: 12/20/24 05:21 12/20/24 05:22 Labs: Abnormal Lab Results - Last 24 Hours (Table) 12/18/24 12/18/24 12/18/24 Range/Units 18:02 20:24 23:16 WBC (4.50-10.00) 10*3/uL RBC (4.10-5.20) 10*6/uL Hgb (12.0-15.0) g/dL Hct (37.2-46.3) % MCHC (32.0-37.0) g/dL Immature Gran # (0.00-0.04) 10*3/uL Neutrophils # (1.80-7.70) 10*3/uL Lymphocytes # (0.90-5.00) 10*3/uL Eosinophils # (0.04-0.35) 10*3/uL Sodium (137-145) mmol/L Chloride (98-107) mmol/L Carbon Dioxide (22-30) mmol/L Creatinine (0.52-1.04) mg/dL Glucose (74-99) mg/dL POC Glucose (mg/dL) 113 H 128 H 133 H (70-110) mg/dL Crossmatch 12/19/24 12/19/24 12/19/24 Range/Units 05:19 05:23 06:00 WBC 16.35 H (4.50-10.00) 10*3/uL RBC 2.21 L (4.10-5.20) 10*6/uL Hgb 6.3 L* (12.0-15.0) g/dL Hct 20.0 L (37.2-46.3) % MCHC 31.5 L (32.0-37.0) g/dL Immature Gran # 0.16 H (0.00-0.04) 10*3/uL Neutrophils # 14.26 H (1.80-7.70) 10*3/uL Lymphocytes # 0.64 L (0.90-5.00) 10*3/uL Eosinophils # 0.38 H (0.04-0.35) 10*3/uL Sodium (137-145) mmol/L Chloride (98-107) mmol/L Carbon Dioxide (22-30) mmol/L Creatinine (0.52-1.04) mg/dL Glucose (74-99) mg/dL POC Glucose (mg/dL) 169 H (70-110) mg/dL Crossmatch See Detail 12/19/24 12/19/24 12/19/24 Range/Units 06:00 11:38 16:26 WBC 23.04 H (4.50-10.00) 10*3/uL RBC 2.92 L (4.10-5.20) 10*6/uL Hgb 8.6 L D (12.0-15.0) g/dL Hct 25.8 L (37.2-46.3) % MCHC (32.0-37.0) g/dL Immature Gran # (0.00-0.04) 10*3/uL Neutrophils # (1.80-7.70) 10*3/uL Lymphocytes # (0.90-5.00) 10*3/uL Eosinophils # (0.04-0.35) 10*3/uL Sodium 134 L (137-145) mmol/L Chloride 108 H (98-107) mmol/L Carbon Dioxide 21 L (22-30) mmol/L Creatinine 1.07 H (0.52-1.04) mg/dL Glucose 130 H (74-99) mg/dL POC Glucose (mg/dL) 146 H (70-110) mg/dL Crossmatch
--- NOTE | 2024-12-19 19:39 | PN ---
PROGRESS NOTE 84-year-old white female, remains in the ICU status post CVA during procedure for vertebral artery stenosis stenting. Yesterday afternoon she started talking, following commands, moving 4 extremities, mumbling answers, following visual commands. Temperature 98, O2 of 94 on room air, 204 over 44 to 150s over 29 to 44 blood pressure, respiratory rate 14-16, pulse 80s to 90s. White count 16.35, hemoglobin 6.3. We have to give her some blood due to severe anemia. Sodium giovanni to 134, potassium 3.6. Sugars mid 100s. Glucose 130. She is status post angioplasty vertebral arteries. Her comprehension is greatly improved, much better than yesterday. Blood pressure is elevated, want to control that a little bit better. Temperature 98, pulse 82, respiratory rate 15-16, O2 sat 94. She has hypertension acceleration. She has multiple strokes, but she is improved. She has acute on chronic severe anemia, possible cardioembolic stroke, seizure disorder, diabetes, hypertension, COPD, obesity, coronary artery disease, pleural effusion. MRI of the brain shows subcu infarcts, cardioembolic stroke. EEG negative for seizures. Plavix was given since then. Carotid arteries 50% blocked only. Also have to give her blood if her hemoglobin is below 6. At this time prognosis is guarded. MMODL / IJN: [id number] /
[2024-12-19 20:58] VITALS: TEMP 98.9
[2024-12-20 00:09] LABS: Glucose,Whole Blood 187 mg/dL (70-110)
[2024-12-20 05:07] VITALS: BP 63/45
[2024-12-20 05:59] LABS: Basophils # (A) 0.11 10*3/uL (0.00-0.10); Basophils % (A) 0.4 %; Eosinophils # (A) 0.51 10*3/uL (0.04-0.35); Eosinophils % (A) 2.1 %; HCT 22.0 % (37.2-46.3); HGB 7.2 g/dL (12.0-15.0); Lymphocytes # (A) 1.27 10*3/uL (0.90-5.00); Lymphocytes % (A) 5.1 %; MCH 29.3 pg (27.0-32.0); MCHC 32.7 g/dL (32.0-37.0); MCV 89.4 fL (80.0-97.0); Monocytes # (A) 1.45 10*3/uL (0.20-1.00); Monocytes % (A) 5.8 %; Neutrophils # (A) 21.14 10*3/uL (1.80-7.70); Neutrophils % (A) 85.2 %; Platelet Count 403 10*3/uL (140-440); RBC 2.46 10*6/uL (4.10-5.20); RDW 15.9 % (11.5-14.5); WBC 24.82 10*3/uL (4.50-10.00)
[2024-12-20 06:10] LABS: African American GFR (CKD) 71 (>60 ml/min/1.73 sqM); Anion Gap 7 mmol/L; Blood Urea Nitrogen 18 mg/dL (7-17); Calcium 8.4 mg/dL (8.4-10.2); Carbon Dioxide 22 mmol/L (22-30); Chloride 106 mmol/L (98-107); Glucose 170 mg/dL (74-99); Non-African American GFR(CKD) 62 (>60 ml/min/1.73 sqM); Potassium 3.7 mmol/L (3.5-5.1); Sodium 135 mmol/L (137-145)
[2024-12-20 06:28] LABS: Glucose,Whole Blood 196 mg/dL (70-110)
[2024-12-20] MEDS: POTASSIUM CHLORIDE 20 MEQ in WATER FOR INJECTION 1 100ML.BAG IVPB SCH (06:57)
[2024-12-20] MEDS ORDERED: IOPAMIDOL CONTRAST (ORAL USE) VIAL PO PRN (08:39)
[2024-12-20 08:56] LABS: Basophils # (A) 0.09 10*3/uL (0.00-0.10); Basophils % (A) 0.3 %; Eosinophils # (A) 0.04 10*3/uL (0.04-0.35); Eosinophils % (A) 0.1 %; HCT 20.1 % (37.2-46.3); Lymphocytes # (A) 1.16 10*3/uL (0.90-5.00); Lymphocytes % (A) 4.1 %; MCH 29.5 pg (27.0-32.0); MCHC 33.3 g/dL (32.0-37.0); MCV 88.5 fL (80.0-97.0); Monocytes # (A) 1.23 10*3/uL (0.20-1.00); Monocytes % (A) 4.4 %; Neutrophils # (A) 25.19 10*3/uL (1.80-7.70); Neutrophils % (A) 89.1 %; Platelet Count 396 10*3/uL (140-440); RBC 2.27 10*6/uL (4.10-5.20); RDW 15.9 % (11.5-14.5); WBC 28.27 10*3/uL (4.50-10.00)
[2024-12-20 09:00] LABS: HGB 6.7 g/dL (12.0-15.0)
[2024-12-20] MEDS ORDERED: ENOXAPARIN 30 MG/0.3 ML SYRINGE SQ SCH (09:00)
[2024-12-20] MEDS: PROPOFOL 10 MG/ML 20 ML VIAL IV ONE (09:43)
[2024-12-20] MEDS ORDERED: CHLORHEXIDINE GLUCONATE 15 ML CUP MUCOUS MEM SCH (09:45)
[2024-12-20] MEDS: CISATRACURIUM 2 MG/ML 5 ML VIAL IV ONE (09:50)
[2024-12-20] MEDS ORDERED: LACTATED RINGERS 1,000 ML IV ONE (09:51)
[2024-12-20] MEDS ORDERED: EPINEPHrine 10 ML SYRINGE (0.1 MG/ML) ONE (10:02)
[2024-12-20] MEDS ORDERED: ATROPINE SULFATE 0.1 MG/ML 10ML SYRINGE ONE (10:02)
[2024-12-20] MEDS ORDERED: NOREPINEPHRINE 8 MG in SODIUM CHLORIDE 0.9% 250 ML IV SCH (10:30)
--- NOTE | 2024-12-20 10:30 | OP ---
OPERATIVE REPORT DATE OF SERVICE : PROCEDURE: Endotracheal intubation. PREOPERATIVE DIAGNOSIS: Impending respiratory failure. POSTOPERATIVE DIAGNOSIS: Impending respiratory failure. FIRST MANNEQUIN WIG MAKER: Dr. Chica Acuña. DESCRIPTION OF PROCEDURE: The patient's procedure took place in room 265. The patient was sedated initially with propofol 50 mcg. The patient was intubated with a 7.5 endotracheal tube. We used a standard laryngoscope with #3 Emilio blade. The endotracheal tube was seen to go between the glottic opening into the trachea. There were good bilateral breath sounds. There was good color change on the capnograph. The balloon on the endotracheal tube was inflated. A chest x-ray was ordered to check placement. There was no immediate complication. The patient tolerated the procedure well without difficulty. There was informed consent and universal timeout. MMODL / IJN: [id number] /
[2024-12-20 10:37] VITALS: PULSE 103; RESP 26
--- NOTE | 2024-12-20 11:35 | P.PN ---
Subjective Progress Note Date: 12/20/24 Patient is a 84-year-old female transferred from [facility] yesterday. Documented past medical history including hypertension, hyperlipidemia, diabetes mellitus, CVA/TIA, seizure disorder, CKD, chronic anemia. Reportedly, concerns of peripheral hypotension despite central hypertension. Imaging done at the outside facility including a chest CT angiogram concerning for bilateral subclavian stenosis and possible additional subclavian steal syndrome. Poor opacification thought to be related to the severe stenosis. A femoral arterial line catheter was placed identifying severe hypertension, reportedly as high as 270/100 mmHg. Previously, placed on IV nitroglycerin at outside facility, and now on oral antihypertensives.. Of note, patient previously underwent left and right-sided heart catheterization on 12/09/2024 identifying coronary artery disease with mid LAD 60 to 70% stenosis, mid distal RCA 50 to 60% stenosis. High left-sided filling pressures. Additionally, major discrepancy noted in systemic blood pressure reading and blood pressure cuff which was identified at 70/40's mmHg. Her central aortic pressure was in the order of 220-240 over 80 mmHg. Labs including a CBC with a WBC count of 19.4, hemoglobin 8.9, platelets 393. BMP with sodium 127, potassium 4.5, chloride 101, serum bicarb 19, BUN 17, creatinine 0.96, glucose 175. Urinalysis positive for pyuria and bacteriuria. Empirically placed on Rocephin previously. Normal saline infusing at 75 mL/h. Patient being seen in the intensive care unit. She does not have any specific complaints. She is resting comfortably on room air. SpO2 reading 93% on bedside monitor. Heart rhythm appears normal sinus with frequent PACs. Blood pressure is now normotensive, currently reading 115/72 mmHg via a right femoral arterial line. Nitroglycerin has previously been stopped. She is on a combination of oral antihypertensives including Norvasc, losartan, Aldactone. She does report occasional bilateral arm and hand numbness and tingling with activity. Admits to frontal headache, almost 1 week. Currently resolved. Also, reports blurred vision over the last couple months. Denies hearing loss, tinnitus, dizziness, syncope. Denies any chest pain, heart palpitations, lower extremity edema, shortness of breath. She has remained hemodynamically stable, awaiting cardiovascular recommendations. The patient is seen today December 17, 2024 in follow-up in the intensive care unit. 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 She did undergo stenting of the ostium of the innominate artery. During the procedure she developed for strokelike symptoms and a code stroke was called. CT scan of the brain revealed no areas of acute brothers-white matter loss or differentiation identified. 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 Remote left frontal lobe injury with encephalomalacia. CT angiogram revealed calcified and noncalcified plaque at the origin and near the origin of the left subclavian artery with occlusion. Correlate for subclavian steal phenomenon. No evidence of dissection of the cervical internal carotid arteries or vertebral arteries. Calcified plaque in the carotid bifurcations up to 50% stenosis bilaterally. No evidence of intracranial high-grade stenosis or intracranial aneurysm. Today the patient remains aphasic. Not able to follow any commands. She is maintaining O2 saturations in the 90s on 2 L/min per nasal cannula. She has normal saline at KVO. White count 20.5. Hemoglobin 7.7. Platelets 411. Sodium 132. Potassium 4.3. Bicarb 21. BUN 17. Creatinine 0.99. Glucose 127. She remains on aspirin and Plavix. Chest x-ray reveals NG tube in appropriate position. Stable right IJ central venous catheter in place. Cardiomegaly with minimal pulmonary vascular congestion. The patient is seen today December 18, 2024 in follow-up in the intensive care unit. She is awake, resting in bed, remains about the same today as compared to yesterday. Mainly opening her eyes spontaneously. Not following any commands. Nonverbal. MRI of the brain revealed multiple bilateral multifocal acute/suba cute infarcts. Echocardiogram revealed preserved left ventricular systolic function. Moderate pulmonary hypertension. It was a suboptimal bubble study to rule out PFO. EEG revealed moderate to severe background slowing suggestive of generalized cerebral dysfunction seen in toxic metabolic encephalopathy or diffuse structural brain abnormality. No epileptiform activity was seen. She remains on Plavix and aspirin. She is continued on ceftriaxone. Lovenox for DVT prophylaxis. The patient is seen today December 19, 2024 in follow-up in the intensive care unit. She remains nonverbal. Opens eyes spontaneously. Maintaining O2 saturations in the 90s on room air oxygen. Nasogastric tube remains in place. She has been nourished with vital AF at 30 mL/h with a goal of 38 mL/h. Normal saline at 75 mL/h. Hemoglobin 6.3 this morning and she is currently receiving 1 unit of packed red blood cells. She remains on ceftriaxone. Lovenox for DVT prophylaxis. Urine culture revealed no growth. White count 16.3. Platelets 325. Sodium 134. Potassium 3.6. Bicarb 21. BUN 16. Creatinine 1.07. Glucose 130. The patient is seen today December 20, 2024 in follow-up in the intensive care unit. She was on 2 L nasal cannula initially. White count 28.2. Hemoglobin 6.7. Platelets 396. Sodium 135. Potassium 3.7. Bicarb 22. BUN 18. Creatinine 0.88. Glucose 170. She is currently quite obtunded with agonal respirations. Her daughters were aware of her critical illness and wanted her to remain a full code. She was subsequently intubated and placed on the mechanical ventilator. Following that she developed hypotension and PEA and CPR was initiated. CPR continued for 10 minutes and then her daughter was brought back to the room and requested us to stop. The patient approximately 1015. Objective - Vital Signs Vital signs: Vital Signs Temp 98.9 F 12/19/24 20:00 Pulse 103 H 12/20/24 08:30 Resp 26 H 12/20/24 08:30 BP 63/45 12/20/24 10:30 Pulse Ox 99 12/20/24 08:30 FiO2 100 12/20/24 09:54 Intake & Output 12/19/24 12/20/24 12/20/24 18:59 06:59 18:59 Intake Total 1697 1500 194 Output Total 465 740 20 Balance 1232 760 174 Weight 83.3 kg Intake: IV 1044 954 156 0.9 kvo 100 Lactated Ringers 1,000 ml 750 900 150 @ 75 mls/hr IV .[id number] [facility] Rx#:[id number] cefTRIAXone 1 gm In 50 Sodium Chloride 0.9% 50 ml @ 100 mls/hr IVPB Q24HR [facility] Rx#:[id number] pressure bags 144 54 6 Tube Feeding 366 456 38 Blood Product 287 Rc Pheresis As-3 Unit 287 [id number] Other 90 Output: Urine 465 740 20 Other: Voiding Method Indwelling Catheter Indwelling Catheter Indwelling Catheter ABP, PAP, CO, CI - Last Documented Arterial Blood Pressure 127/48 - Exam GENERAL EXAM: Obtunded, minimally responsive, 84-year-old female requiring intubation mechanical ventilation. HEAD: Normocephalic. EYES: Normal reaction of pupils, equal size. NOSE: Clear with pink turbinates. Nasogastric tube secured in place. THROAT: No erythema or exudates. NECK: No masses, no JVD. CHEST: No chest wall deformity. Right subclavian triple-lumen catheter secured in place. LUNGS: Equal air entry with no crackles, wheeze, rhonchi or dullness. CVS: S1 and S2 normal with no audible murmur, regular rhythm. ABDOMEN: No hepatosplenomegaly, normal bowel sounds, no guarding or rigidity. SPINE: No scoliosis or deformity SKIN: No rashes CENTRAL NERVOUS SYSTEM: Obtunded, tone is normal in all 4 extremities. EXTREMITIES: There is no peripheral edema. No clubbing, no cyanosis. Peripheral pulses are intact. - Labs CBC & Chem 7: 12/20/24 08:35 12/20/24 05:22 Labs: Abnormal Lab Results - Last 24 Hours (Table) 12/19/24 12/19/24 12/19/24 Range/Units 05:23 11:38 16:26 WBC 23.04 H (4.50-10.00) 10*3/uL RBC 2.92 L (4.10-5.20) 10*6/uL Hgb 8.6 L D (12.0-15.0) g/dL Hct 25.8 L (37.2-46.3) % Immature Gran # (0.00-0.04) 10*3/uL Neutrophils # (1.80-7.70) 10*3/uL Monocytes # (0.20-1.00) 10*3/uL Eosinophils # (0.04-0.35) 10*3/uL Basophils # (0.00-0.10) 10*3/uL Sodium (137-145) mmol/L BUN (7-17) mg/dL Glucose (74-99) mg/dL POC Glucose (mg/dL) 146 H (70-110) mg/dL Crossmatch See Detail 12/20/24 12/20/2425 Range/Units 00:08 05:21 05:22 WBC 24.82 H (4.50-10.00) 10*3/uL RBC 2.46 L (4.10-5.20) 10*6/uL Hgb 7.2 L (12.0-15.0) g/dL Hct 22.0 L (37.2-46.3) % Immature Gran # 0.34 H (0.00-0.04) 10*3/uL Neutrophils # 21.14 H (1.80-7.70) 10*3/uL Monocytes # 1.45 H (0.20-1.00) 10*3/uL Eosinophils # 0.51 H (0.04-0.35) 10*3/uL Basophils # 0.11 H (0.00-0.10) 10*3/uL Sodium 135 L (137-145) mmol/L BUN 18 H (7-17) mg/dL Glucose 170 H (74-99) mg/dL POC Glucose (mg/dL) 187 H (70-110) mg/dL Crossmatch 12/20/24 12/20/24 Range/Units 06:27 08:35 WBC 28.27 H (4.50-10.00) 10*3/uL RBC 2.27 L (4.10-5.20) 10*6/uL Hgb 6.7 L* (12.0-15.0) g/dL Hct 20.1 L (37.2-46.3) % Immature Gran # 0.56 H (0.00-0.04) 10*3/uL Neutrophils # 25.19 H (1.80-7.70) 10*3/uL Monocytes # 1.23 H (0.20-1.00) 10*3/uL Eosinophils # (0.04-0.35) 10*3/uL Basophils # (0.00-0.10) 10*3/uL Sodium (137-145) mmol/L BUN (7-17) mg/dL Glucose (74-99) mg/dL POC Glucose (mg/dL) 196 H (70-110) mg/dL Crossmatch Assessment and Plan Assessment: Transferred from outside facility with concerns of bilateral subclavian artery stenosis. 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 She did undergo stenting of the ostium of the innominate artery. During the procedure she developed for stroke-like symptoms and a code stroke was called Acute CVA with aphasia and inability to follow commands. CT scan of the brain revealed no areas of acute brothers-white matter loss or differentiation identified. 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 Remote left frontal lobe injury with encephalomalacia. CT angiogram revealed calcified and noncalcified plaque at the origin and near the origin of the left subclavian artery with occlusion. Correlate for subclavian steal phenomenon. No evidence of dissection of the cervical internal carotid arteries or vertebral arteries. Calcified plaque in the carotid bifurcations up to 50% stenosis bilaterally. No evidence of intracranial high-grade stenosis or intra cranial aneurysm. MRI of the brain reveals multiple bilateral multifocal acute/subacute infarcts. EEG reveals moderate to severe background slowing suggestive of generalized cerebral dysfunction which can be seen in toxic metabolic encephalopathy or related to diffuse structural brain abnormality. Hypertensive urgency, previously on nitroglycerin infusion at outside facility, now started on p.o. antihypertensives Recent right and left heart catheterization on 12/09/2024 identifying coronary artery disease including mid LAD 60 to 70% stenosis, mid distal RCA 50 to 60% stenosis. High left-sided filling pressures. Additionally, major discrepancy noted in systemic blood pressure reading and blood pressure cuff which was reported at 70/40's mmHg. Her central aortic pressure was in the order of 220- 240 over 80 mmHg per the laborer cheesemaking report. Acute leukocytosis Anemia, normocytic and normochromic. Hemoglobin 6.3 receiving 1 unit of packed red blood cells Hyponatremia, appears euvolemic Nonobstructive coronary artery disease, as reported during heart catheterization History of hyperlipidemia Diabetes mellitus History of CVA/TIA. History of asthma, not in exacerbation Cardiopulmonary arrest/PEA Plan: The patient was seen and evaluated Labs and medications reviewed The patient developed agonal breathing early this morning She was intubated and placed on the mechanical ventilator Subsequently she developed PEA and received 10 minutes of CPR The family came to the room and asked us to stop. She subsequently passed I have personally seen and examined the patient, performed the documentation and the assessment and plan as written. Number of minutes spent on the visit: 10 Dictation was produced using [employer] software. Please excuse any grammatical, word or spelling errors.
[2024-12-20] MEDS: IPRATROPIUM 0.5 MG/2.5 ML NEBU INHALATION SCH (11:48)
[2024-12-20] MEDS ORDERED: IPRATROPIUM BROMIDE 0.06% NASAL SPRAY (15 ML) NASAL PRN (12:00)
[2024-12-20 12:10] VITALS: BMI 37.0
--- NOTE | 2024-12-20 13:46 | P.PN ---
Subjective Progress Note Date: 12/20/24 Patient is a 84-year-old female with history of hypertension, hyperlipidemia, diabetes mellitus, CKD, chronic anemia, CVA/TIA and seizure disorder is a transfer from [facility] yesterday on 12/15/2024. As per the documentation, patient was sent to the [facility] emergency with concerns for hypote nsion when she was at pulmonology Dr. Cox's office. At [facility], patient had a chest CT angiogram which was concerning for bilateral subclavian stenosis and possible additional subclavian steal syndrome. Patient had a placement of femoral arterial line catheter at the outside facility with a blood pressure of as high as 270/100 mmHg. Patient was treated with IV nitroglycerin and currently is on antihypertensive medication. She is Dr. Rivera's patient. Patient underwent left and right heart c atheterization due to abnormal stress test and pulmonary hypertension on 12/09/2024 identifying coronary artery disease including mid LAD 60 to 70% stenosis and mid to distal RCA 50 to 60% stenosis. Elevated left-sided filling pressures. Abnormal RFR of LAD. Patient is currently in the ICU. Patient denies any chest pain, shortness of breath, lightheadedness lower extremity edema. Patient is currently on oral antihypertensive medications including amlodipine, losartan and Aldactone. 12/17/2024: Patient seen and examined at the bedside. 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 During the procedure, patient developed strokelike symptoms and code stroke was called. Initial CT brain did not show any sign of acute stroke. Repeat brain CT today does show new loss of brothers-white matter differentiation within the right parietal lobe and possible right occipital lobe suggestive of ischemia. MRI of the brain is pending. Patient has been experiencing left upper and lower extremity paresthesia with left facial droop. She is currently aphasic. 12/18/2024: Patient seen and examined at the bedside. Patient continues to be severely aphasic with right upper and lower extremity hemiparesis. Brain MRI revealed multiple bilateral acute/subacute infarcts. WBC 15.6, hemoglobin 7.1, sodium 134, BUN 16, creatinine 1.0 Daughter was present at the bedside. Discussed option of palliative care for the patient. 12/19/2024: Patient was seen and examined at the bedside. Patient neurologically remains the same. Patient continues to be aphasic and nonverbal with a right hemiparesis. Family is leaning towards hospice care for the patient. Ap parently they have a meeting with social and political studies professor in the afternoon. WBC 16.3, hemoglobin 6.3, sodium 134, potassium 3.6, BUN 16, creatinine 1.07. 12/20/2024 Seen and examined at bedside this a.m. Patient had 2 femoral arterial lines in place. They were removed last night. The right-sided sheath was removed without any complications however on the left side post removal there was evidence of hematoma which was tried to be refused with manual compression and FemoStop. This morning it was noted that the hematoma grew and the pulses in the left lower extremity were feeble. Thereafter patient became poorly responsive and did go pulseless this morning. CODE BLUE was activated and patient was intubate. CPR was done for 10 minutes but thereafter family decided not to continue further CPR. Hemoglobin was noticed to be 6.7 this morning. Social history: Tobacco: Former smoker Physical examination: Vital signs reviewed General: non toxic, no distress, appears at stated age, morbidly obese Neck: No cervical lymphadenopathy, trachea midline, supple, no JVP Mouth: Right facial droop noted Cardiovascular: S1S2 reg, no murmur, positive dorsalis pedis pulse bilateral, no edema Lungs: Diffuse inspiratory and expiratory wheezes noted. No rales or crackles noted. No use of accessory respiratory muscle. Abdominal: soft, nontender to palpation, no guarding Neuro: Left upper and lower extremity paresthesia Psych: Aphasic Assessment: # Cardiopulmonary arrest with PEA # Large left groin hematoma after femoral line removal #Bilateral subclavian artery stenosis status post stenting of the ostium innominate artery on 12/16/2024 #Acute CVA following stenting of the ostium innominate artery on 12/16/2024 #Central Hypertensive urgency #Coronary artery disease based on recent right and left heart catheterization on 12/09/2024 #Leukocytosis, reactive versus infectious #Normocytic anemia #Hyperlipidemia #Euvolemic hyponatremia Plan: Comfort measures Objective - Vital Signs Vital signs: Vital Signs Temp 98.9 F 12/19/24 20:00 Pulse 103 H 12/20/24 08:30 Resp 26 H 12/20/24 08:30 BP 63/45 12/20/24 10:30 Pulse Ox 99 12/20/24 08:30 FiO2 100 12/20/24 09:54 Intake & Output 12/19/24 12/20/24 12/20/24 18:59 06:59 18:59 Intake Total 1697 1500 194 Output Total 465 740 20 Balance 1232 970 174 Weight 83.3 kg 83.3 kg Intake: IV 1044 954 156 0.9 kvo 100 Lactated Ringers 1,000 ml 750 900 150 @ 75 mls/hr IV .[id number] [facility] Rx#:[id number] cefTRIAXone 1 gm In 50 Sodium Chloride 0.9% 50 ml @ 100 mls/hr IVPB Q24HR [facility] Rx#:[id number] pressure bags 144 54 6 Tube Feeding 366 456 38 Blood Product 287 Rc Pheresis As-3 Unit 287 [id number] Other 90 Output: Urine 465 740 20 Other: Voiding Method Indwelling Catheter Indwelling Catheter Indwelling Catheter ABP, PAP, CO, CI - Last Documented Arterial Blood Pressure 127/48 - Labs CBC & Chem 7: 12/20/24 08:35 12/20/24 05:22 Labs: Abnormal Lab Results - Last 24 Hours (Table) 12/19/24 12/19/24 12/20/24 Range/Units 05:23 16:26 00:08 WBC 23.04 H (4.50-10.00) 10*3/uL RBC 2.92 L (4.10-5.20) 10*6/uL Hgb 8.6 L D (12.0-15.0) g/dL Hct 25.8 L (37.2-46.3) % Immature Gran # (0.00-0.04) 10*3/uL Neutrophils # (1.80-7.70) 10*3/uL Monocytes # (0.20-1.00) 10*3/uL Eosinophils # (0.04-0.35) 10*3/uL Basophils # (0.00-0.10) 10*3/uL Sodium (137-145) mmol/L BUN (7-17) mg/dL Glucose (74-99) mg/dL POC Glucose (mg/dL) 187 H (70-110) mg/dL Crossmatch See Detail 12/20/24 12/20/2412/20/25 Range/Units 05:21 05:22 06:27 WBC 24.82 H (4.50-10.00) 10*3/uL RBC 2.46 L (4.10-5.20) 10*6/uL Hgb 7.2 L (12.0-15.0) g/dL Hct 22.0 L (37.2-46.3) % Immature Gran # 0.34 H (0.00-0.04) 10*3/uL Neutrophils # 21.14 H (1.80-7.70) 10*3/uL Monocytes # 1.45 H (0.20-1.00) 10*3/uL Eosinophils # 0.51 H (0.04-0.35) 10*3/uL Basophils # 0.11 H (0.00-0.10) 10*3/uL Sodium 135 L (137-145) mmol/L BUN 18 H (7-17) mg/dL Glucose 170 H (74-99) mg/dL POC Glucose (mg/dL) 196 H (70-110) mg/dL Crossmatch 12/20/24 Range/Units 08:35 WBC 28.27 H (4.50-10.00) 10*3/uL RBC 2.27 L (4.10-5.20) 10*6/uL Hgb 6.7 L* (12.0-15.0) g/dL Hct 20.1 L (37.2-46.3) % Immature Gran # 0.56 H (0.00-0.04) 10*3/uL Neutrophils # 25.19 H (1.80-7.70) 10*3/uL Monocytes # 1.23 H (0.20-1.00) 10*3/uL Eosinophils # (0.04-0.35) 10*3/uL Basophils # (0.00-0.10) 10*3/uL Sodium (137-145) mmol/L BUN (7-17) mg/dL Glucose (74-99) mg/dL POC Glucose (mg/dL) (70-110) mg/dL Crossmatch
--- NOTE | 2025-01-10 14:45 | DS ---
DISCHARGE SUMMARY HOSPITAL COURSE: 84-year-old white female came to the hospital. History of hypertension, diabetes, CVA, seizure disorder, chronic kidney disease, significant hypertension and stroke, sent to ICU. She had a femoral arterial line. Nitroglycerin was stopped. She was transferred from outside facility due to bilateral subclavian artery stenosis. She underwent surgery by Cardiology, Dr. Rivera, for which she had a stroke in the operating room during the surgery and she has never recovered since. She was made comfort care by family and the patient in the hospital. PROGNOSIS: Terminal. Please see further orders. MMODL / IJN: [id number] /
== END 2024-12-20 13:50 | disposition expired | DRG 981 ==
LOC: 2SICU 14:37
PROVIDERS: ADMIT Family Medicine; ATTEND Family Medicine
PROC: B3151ZZ Fluoroscopy of Bilateral Common Carotid Arteries using Low Osmolar Contrast (ICD-10-PCS; 2024-12-16)
PROC: B31P1ZZ Fluoroscopy of Thoraco-Abdominal Aorta using Low Osmolar Contrast (ICD-10-PCS; 2024-12-16)
PROC: 04HY32Z Insertion of Monitoring Device into Lower Artery, Percutaneous Approach (ICD-10-PCS; 2024-12-16)
PROC: 4A133B1 Monitoring of Arterial Pressure, Peripheral, Percutaneous Approach (ICD-10-PCS; 2024-12-16)
PROC: 4A133J1 Monitoring of Arterial Pulse, Peripheral, Percutaneous Approach (ICD-10-PCS; 2024-12-16)
PROC: 03723DZ Dilation of Innominate Artery with Intraluminal Device, Percutaneous Approach (ICD-10-PCS; principal; 2024-12-16 17:40)
PROC: 30233N1 Transfusion of Nonautologous Red Blood Cells into Peripheral Vein, Percutaneous Approach (ICD-10-PCS; 2024-12-19)
PROC: 5A12012 Performance of Cardiac Output, Single, Manual (ICD-10-PCS; 2024-12-20)
PROC: 0BH18EZ Insertion of Endotracheal Airway into Trachea, Via Natural or Artificial Opening Endoscopic (ICD-10-PCS; 2024-12-20)
DX: G45.8 Other transient cerebral ischemic attacks and related syndromes (principal); I63.40 Cerebral infarction due to embolism of unspecified cerebral artery; Z51.5 Encounter for palliative care; G81.91 Hemiplegia, unspecified affecting right dominant side; E87.1 Hypo-osmolality and hyponatremia; D63.1 Anemia in chronic kidney disease; I16.0 Hypertensive urgency; J90 Pleural effusion, not elsewhere classified; I46.9 Cardiac arrest, cause unspecified; I27.20 Pulmonary hypertension, unspecified; J44.89 Other specified chronic obstructive pulmonary disease; E11.22 Type 2 diabetes mellitus with diabetic chronic kidney disease; I70.8 Atherosclerosis of other arteries; I12.9 Hypertensive chronic kidney disease with stage 1 through stage 4 chronic kidney disease, or unspecified chronic kidney disease; N18.9 Chronic kidney disease, unspecified; E66.9 Obesity, unspecified; I97.638 Postprocedural hematoma of a circulatory system organ or structure following other circulatory system procedure; R47.01 Aphasia; I69.311 Memory deficit following cerebral infarction; R29.810 Facial weakness; I25.10 Atherosclerotic heart disease of native coronary artery without angina pectoris; E78.5 Hyperlipidemia, unspecified; D64.9 Anemia, unspecified; E87.70 Fluid overload, unspecified; Y83.8 Other surgical procedures as the cause of abnormal reaction of the patient, or of later complication, without mention of misadventure at the time of the procedure; Z79.899 Other long term (current) drug therapy; Z79.84 Long term (current) use of oral hypoglycemic drugs; Z79.82 Long term (current) use of aspirin; Z87.891 Personal history of nicotine dependence; Z68.37 Body mass index [BMI] 37.0-37.9, adult
CPT/HCPCS: 36223; 37216; 70450; 70496; 70498; 70551; 71045; 80048; 80053; 80061; 81001; 82805; 83036; 83735; 84132; 85025; 85027; 86850; 86900; 86901; 86920; 87086; 92950; 93306; 94002; 94640; 94760; 95816